=== PATIENT | male | born 1935 | race Asian ===

== ENCOUNTER → 2018-01-07 | Emergency (ER) | payer MEDICARE, MEDICAID ==
[~2018-01-07] VITALS: Ht 154.9 cm; Wt 63.6 kg
[~2018-01-07] MED LIST: ALBU8HFA PO; AZIT250T PO; DOXY100C43 PO; PRED20TA PO; PRED5TAB PO; ZOF4T PO; dexamethasone 4mg tablet PO ONE; ipratropium/albuterol 3ml nebule NEB ONE
[2018-01-07 13:04] LABS: BASOPHILS % (AUTO) 0.4 % (0-1); EOSINOPHILS # (AUTO) 0.3 X10'3 (0-0.9); EOSINOPHILS % (AUTO) 4.8 % (0-6); HEMATOCRIT 36.1 % (42.0-52.0); LYMPHOCYTES # (AUTO) 0.9 X10'3 (1.1-4.8); LYMPHOCYTES % (AUTO) 15.7 % (21-51); MEAN CORPUSCULAR HGB CONC 30.4 % (33.0-36.5); MEAN CORPUSCULAR VOLUME 62.7 FL (78-98); MEAN PLATELET VOLUME 8.3 FL (7.4-10.4); MONOCYTES # (AUTO) 0.8 X10'3 (0-0.9); MONOCYTES % (AUTO) 13.4 % (2-12); NEUTROPHILS # (AUTO) 3.8 X10'3 (1.8-7.7); NEUTROPHILS % (AUTO) 65.7 % (42-75); PLATELET COUNT 186 X10'3 (140-440); RED BLOOD COUNT 5.76 X10'6 (4.70-6.10); RED CELL DISTRIBUTION WIDTH 15.4 % (11.5-14.5); WHITE BLOOD COUNT 5.8 X10'3 (4.5-11.0)
[2018-01-07 13:19] LABS: ALBUMIN 2.8 G/DL (3.4-5.0); ALBUMIN/GLOBULIN RATIO 0.7 (1.1-1.5); ANION GAP 8 (8-16); BILIRUBIN,TOTAL 0.5 MG/DL (0.1-1.0); BLOOD UREA NITROGEN 15 MG/DL (7-18); BUN/CREATININE RATIO 13.8 (5.4-32.0); CALCIUM 8.8 MG/DL (8.5-10.1); CHLORIDE 107 MMOL/L (99-107); CREATININE 1.09 MG/DL (0.60-1.10); GLUCOSE 116 MG/DL (70-104); POTASSIUM 3.9 MMOL/L (3.5-5.1); SODIUM 147 MMOL/L (135-145); TOTAL CARBON DIOXIDE 32.5 MMOL/L (24-32); eGFR 65 ML/MIN
[2018-01-07 13:20] LABS: ALANINE AMINOTRANSFERASE 41 U/L (12-78); ALKALINE PHOSPHATASE 96 IU/L (46-116); ASPARTATE AMINO TRANSFERASE 21 U/L (10-37)
[2018-01-07 14:23] VITALS: BP 116/64
== END | disposition home or self-care (01) ==
LOC: ER 12:27
DX: J44.1 Chronic obstructive pulmonary disease with (acute) exacerbation (principal); J20.9 Acute bronchitis, unspecified; D64.9 Anemia, unspecified; Z90.49 Acquired absence of other specified parts of digestive tract; Z79.899 Other long term (current) drug therapy
CPT/HCPCS: 36415; 71045; 80053; 83605; 85025; 87040; 87070; 87077; 87185; 94640; 94760; 99285; J7030; J8540

== ENCOUNTER 2018-05-29 21:41 | Inpatient (IN) | payer MEDICARE, MEDICAID ==
[~2018-05-29] VITALS: Ht 165.1 cm; Wt 73.8 kg
[~2018-05-29 21:41] MED LIST changes: -DOXY100C43 PO; -dexamethasone 4mg tablet PO ONE; -ipratropium/albuterol 3ml nebule NEB ONE
[2018-05-29 22:38] LABS: BASOPHILS % (AUTO) 0 % (0-1); EOSINOPHILS # (AUTO) 0.4 X10'3 (0-0.9); EOSINOPHILS % (AUTO) 3.4 % (0-6); HEMATOCRIT 38.7 % (42.0-52.0); HEMOGLOBIN 11.6 g/dl (14.0-17.9); LYMPHOCYTES # (AUTO) 0.8 X10'3 (1.1-4.8); LYMPHOCYTES % (AUTO) 6.5 % (21-51); MEAN CORPUSCULAR HEMOGLOBIN 18.4 PG (27.0-31.0); MEAN CORPUSCULAR HGB CONC 30.1 % (33.0-36.5); MEAN CORPUSCULAR VOLUME 61.3 FL (78-98); MEAN PLATELET VOLUME 8.7 FL (7.4-10.4); MONOCYTES # (AUTO) 0.6 X10'3 (0-0.9); MONOCYTES % (AUTO) 4.7 % (2-12); NEUTROPHILS # (AUTO) 11.1 X10'3 (1.8-7.7); NEUTROPHILS % (AUTO) 85.4 % (42-75); PLATELET COUNT 156 X10'3 (140-440); RED BLOOD COUNT 6.31 X10'6 (4.70-6.10); RED CELL DISTRIBUTION WIDTH 16.8 % (11.5-14.5); WHITE BLOOD COUNT 12.9 X10'3 (4.5-11.0)
[2018-05-29] MEDS ORDERED: albuterol 2.5 MG/3 ML nebule CONTNEB PRN (22:45)
[2018-05-29] MEDS ORDERED: methylPREDNISolone sod succ 125mg/2ml vial IV ONE (22:45)
[2018-05-29 22:49] LABS: PARTIAL THROMBOPLASTIN TIME 31 SECONDS (22-32); PROTHROMBIN TIME 10.2 SECONDS (9.0-12.0)
[2018-05-29 22:55] LABS: ALANINE AMINOTRANSFERASE 20 U/L (12-78); ALBUMIN 3.5 G/DL (3.4-5.0); ALBUMIN/GLOBULIN RATIO 0.9 (1.1-1.5); ALKALINE PHOSPHATASE 96 IU/L (46-116); ANION GAP 1 (8-16); ASPARTATE AMINO TRANSFERASE 18 U/L (10-37); BILIRUBIN,TOTAL 0.7 MG/DL (0.1-1.0); BLOOD UREA NITROGEN 28 MG/DL (7-18); BUN/CREATININE RATIO 20.6 (5.4-32.0); CALCIUM 8.7 MG/DL (8.5-10.1); CHLORIDE 107 MMOL/L (99-107); CREATININE 1.36 MG/DL (0.60-1.10); GLUCOSE 104 MG/DL (70-104); POTASSIUM 5.2 MMOL/L (3.5-5.1); SODIUM 142 MMOL/L (135-145); TOTAL CARBON DIOXIDE 33.9 MMOL/L (24-32); TOTAL PROTEIN 7.3 G/DL (6.4-8.2); eGFR 50 ML/MIN
[2018-05-29 23:07] LABS: MAGNESIUM 2.1 MG/DL (1.5-2.4)
[2018-05-29 23:24] LABS: ANISOCYTOSIS 1+; MICROCYTOSIS 2+; PLATELET ESTIMATE NORMAL; TOTAL CELLS COUNTED 100
[2018-05-29 23:25] LABS: HYPOCHROMASIA 1+; POIKILOCYTOSIS FEW
[2018-05-29] MEDS ORDERED: CefTRIAXone/D5W-Rocephin 1gm 50 ML IV ONE (23:25)
[2018-05-29] MEDS ORDERED: azithromycin/NS 500mg/250ml 250 ML IV SCH (23:30)
[2018-05-29] MEDS ORDERED: IPRA4AER IH (23:41)
[2018-05-29 23:45] LABS: CLARITY,URINE CLEAR (Clear); COLOR,URINE YELLOW (Yellow); GLUCOSE, URINE NEGATIVE (Neg); KETONES,URINE NEGATIVE (Neg); LEUKOCYTE ESTERASE ,URINE NEGATIVE (Neg); NITRITES, URINE NEGATIVE (Neg); OCCULT BLOOD,URINE NEGATIVE (Neg); PH,URINE 5.5 (4.8-8.0); PROTEIN,URINE NEGATIVE (Neg); UROBILINOGEN,URINE 0.2 E.U/dL (0.2-1.0)
[2018-05-29 23:46] LABS: UA COLLECTION TYPE NON-SPECIFIED
[2018-05-30 00:26] LABS: ABG BASE EXCESS 4.2 mmol/L (-2.0-3.0); ABG HCO3 33.9 mmol/L (22.0-26.0); ABG OXYGEN SATURATION 92.1 % (95-98); ABG PCO2 (T) 81.4 mmHg (35.0-48.0); ABG PH (T) 7.238 (7.350-7.450); ALLEN'S TEST Positive; FCOHb 1.3 % (0.5-1.5); FLOW 4 L/min; FMetHb 0.1 % (0.3-1.12); FO2Hb 90.8 % (94-100); PATIENT TEMPERATURE 37.1; RESPIRATORY RATE (OBSERVED) 18 b/min; TOTAL HEMOGLOBIN 12.2 G/dl (14.0-18.0)
[2018-05-30] MEDS: normal saline 1000ml 1,000 ML IV SCH (01:42)
[2018-05-30] MEDS ORDERED: ondansetron/PF 4mg/2ml inj IV PRN (01:45)
[2018-05-30] MEDS ORDERED: mag hydrox/Alum hydrox/simeth 30ml oral suspension PO PRN (01:45)
[2018-05-30 02:30] VITALS: BP 105/61
[2018-05-30] MEDS: albuterol 2.5 MG/3 ML nebule NEB SCH ×6 (03:33→23:27)
[2018-05-30 05:20] LABS: ABG BASE EXCESS 2.1 mmol/L (-2.0-3.0); ABG HCO3 30.7 mmol/L (22.0-26.0); ABG OXYGEN SATURATION 92.6 % (95-98); ABG PCO2 (T) 66.4 mmHg (35.0-48.0); ABG PH (T) 7.278 (7.350-7.450); ABG PO2 (T) 64.1 mmHg (83-108); ALLEN'S TEST Positive; FCOHb 0.5 % (0.5-1.5); FMetHb 0.3 % (0.3-1.12); FO2Hb 91.9 % (94-100); MINUTE VOLUME 11 L/min; PATIENT TEMPERATURE 36.1; RESPIRATORY RATE 18 b/min; RESPIRATORY RATE (OBSERVED) 23 b/min; TOTAL HEMOGLOBIN 12.2 G/dl (14.0-18.0)
[2018-05-30 06:00] VITALS: BP 126/66
[2018-05-30] MEDS: CefTRIAXone/D5W-Rocephin 1gm 50 ML IV SCH (07:30)
[2018-05-30] MEDS: methylPREDNISolone sod succ/PF 40mg inj. IV SCH ×2 (07:35→16:11)
[2018-05-30] MEDS: heparin, porcine 5000 units/ml vial SQ SCH ×2 (07:42→20:01)
[2018-05-30 11:00] VITALS: BP 125/71
[2018-05-30] MEDS: acetaminophen 325mg tablet PO PRN ×2 (13:08→20:01)
[2018-05-30 15:00] VITALS: BP 131/71
[2018-05-30 19:00] VITALS: BP 134/62
[2018-05-30] MEDS: lactobacillus rhamnosus 10,000 MMU CELLS/CAPSULE PO SCH (20:00)
[2018-05-30 23:00] VITALS: BP 106/52
[2018-05-31] MEDS: methylPREDNISolone sod succ/PF 40mg inj. IV SCH ×3 (00:57→16:32)
[2018-05-31 03:00] VITALS: BP 117/59
[2018-05-31] MEDS: albuterol 2.5 MG/3 ML nebule NEB SCH ×6 (03:34→23:03)
[2018-05-31 06:23] LABS: BASOPHILS % (AUTO) 0 % (0-1); EOSINOPHILS # (AUTO) 0.1 X10'3 (0-0.9); EOSINOPHILS % (AUTO) 1.1 % (0-6); HEMATOCRIT 37.6 % (42.0-52.0); HEMOGLOBIN 11.2 g/dl (14.0-17.9); LYMPHOCYTES # (AUTO) 0.5 X10'3 (1.1-4.8); MEAN CORPUSCULAR HEMOGLOBIN 18.3 PG (27.0-31.0); MEAN CORPUSCULAR HGB CONC 29.9 % (33.0-36.5); MEAN CORPUSCULAR VOLUME 61.3 FL (78-98); MEAN PLATELET VOLUME 8.9 FL (7.4-10.4); MONOCYTES # (AUTO) 0.4 X10'3 (0-0.9); MONOCYTES % (AUTO) 4.3 % (2-12); NEUTROPHILS # (AUTO) 8.8 X10'3 (1.8-7.7); NEUTROPHILS % (AUTO) 89.6 % (42-75); PLATELET COUNT 161 X10'3 (140-440); RED BLOOD COUNT 6.14 X10'6 (4.70-6.10); RED CELL DISTRIBUTION WIDTH 16.7 % (11.5-14.5); WHITE BLOOD COUNT 9.8 X10'3 (4.5-11.0)
[2018-05-31 07:00] VITALS: BP 117/56
[2018-05-31 07:04] LABS: ALANINE AMINOTRANSFERASE 60 U/L (12-78); ALBUMIN 3.2 G/DL (3.4-5.0); ALBUMIN/GLOBULIN RATIO 0.9 (1.1-1.5); ALKALINE PHOSPHATASE 92 IU/L (46-116); ANION GAP 5 (8-16); ASPARTATE AMINO TRANSFERASE 32 U/L (10-37); BILIRUBIN,TOTAL 0.5 MG/DL (0.1-1.0); BLOOD UREA NITROGEN 34 MG/DL (7-18); BUN/CREATININE RATIO 28.8 (5.4-32.0); CALCIUM 9.1 MG/DL (8.5-10.1); CHLORIDE 106 MMOL/L (99-107); CREATININE 1.18 MG/DL (0.60-1.10); GLUCOSE 123 MG/DL (70-104); SODIUM 143 MMOL/L (135-145); TOTAL CARBON DIOXIDE 32.3 MMOL/L (24-32); TOTAL PROTEIN 6.9 G/DL (6.4-8.2); eGFR 59 ML/MIN
[2018-05-31] MEDS: normal saline 1000ml 1,000 ML IV SCH (07:32)
[2018-05-31] MEDS: CefTRIAXone/D5W-Rocephin 1gm 50 ML IV SCH (07:34)
[2018-05-31] MEDS: azithromycin 250mg tablet PO SCH (07:37)
[2018-05-31] MEDS: lactobacillus rhamnosus 10,000 MMU CELLS/CAPSULE PO SCH ×2 (07:38→20:11)
[2018-05-31] MEDS: heparin, porcine 5000 units/ml vial SQ SCH ×2 (07:38→20:13)
[2018-05-31 09:45] LABS: HYPOCHROMASIA 1+; PLATELET ESTIMATE NORMAL
[2018-05-31 09:46] LABS: ANISOCYTOSIS 1+; ELLIPTOCYTES 1+; MICROCYTOSIS 2+
[2018-05-31 11:00] VITALS: BP 123/87
[2018-05-31] MEDS: morphine 2 MG/ML inj. syringe IV PRN ×2 (12:47→16:32)
[2018-05-31 15:00] VITALS: BP 138/85
[2018-05-31 19:00] VITALS: BP 153/81
[2018-05-31] MEDS ORDERED: allopurinol 100mg tablet PO ONE (19:15)
[2018-05-31] MEDS: guaiFENesin ER 600mg tablet PO SCH (20:12)
[2018-05-31 23:00] VITALS: BP 141/73
[2018-06-01] MEDS: methylPREDNISolone sod succ/PF 40mg inj. IV SCH ×3 (00:53→16:41)
[2018-06-01 03:00] VITALS: BP 133/57
[2018-06-01] MEDS: albuterol 2.5 MG/3 ML nebule NEB SCH ×3 (03:08→10:44)
[2018-06-01 06:31] LABS: BASOPHILS % (AUTO) 0 % (0-1); EOSINOPHILS # (AUTO) 0.1 X10'3 (0-0.9); EOSINOPHILS % (AUTO) 1.2 % (0-6); HEMATOCRIT 36.3 % (42.0-52.0); HEMOGLOBIN 10.8 g/dl (14.0-17.9); LYMPHOCYTES # (AUTO) 0.3 X10'3 (1.1-4.8); MEAN CORPUSCULAR HEMOGLOBIN 18.2 PG (27.0-31.0); MEAN CORPUSCULAR HGB CONC 29.9 % (33.0-36.5); MONOCYTES # (AUTO) 0.4 X10'3 (0-0.9); MONOCYTES % (AUTO) 4.1 % (2-12); NEUTROPHILS # (AUTO) 9.2 X10'3 (1.8-7.7); NEUTROPHILS % (AUTO) 91.7 % (42-75); PLATELET COUNT 174 X10'3 (140-440); RED BLOOD COUNT 5.96 X10'6 (4.70-6.10); RED CELL DISTRIBUTION WIDTH 16.4 % (11.5-14.5); WHITE BLOOD COUNT 10.1 X10'3 (4.5-11.0)
[2018-06-01 06:55] VITALS: BP 129/72
[2018-06-01 06:55] LABS: ALANINE AMINOTRANSFERASE 42 U/L (12-78); ALBUMIN/GLOBULIN RATIO 0.9 (1.1-1.5); ALKALINE PHOSPHATASE 80 IU/L (46-116); ANION GAP 5 (8-16); ASPARTATE AMINO TRANSFERASE 16 U/L (10-37); BILIRUBIN,TOTAL 0.3 MG/DL (0.1-1.0); BLOOD UREA NITROGEN 35 MG/DL (7-18); BUN/CREATININE RATIO 29.2 (5.4-32.0); CALCIUM 8.8 MG/DL (8.5-10.1); CHLORIDE 109 MMOL/L (99-107); GLUCOSE 160 MG/DL (70-104); POTASSIUM 4.3 MMOL/L (3.5-5.1); SODIUM 145 MMOL/L (135-145); TOTAL CARBON DIOXIDE 30.6 MMOL/L (24-32); TOTAL PROTEIN 6.4 G/DL (6.4-8.2); eGFR 58 ML/MIN
[2018-06-01] MEDS: azithromycin 250mg tablet PO SCH (07:26)
[2018-06-01] MEDS: CefTRIAXone/D5W-Rocephin 1gm 50 ML IV SCH (07:26)
[2018-06-01] MEDS: lactobacillus rhamnosus 10,000 MMU CELLS/CAPSULE PO SCH ×2 (07:26→20:14)
[2018-06-01] MEDS: guaiFENesin ER 600mg tablet PO SCH ×2 (07:26→20:14)
[2018-06-01] MEDS: heparin, porcine 5000 units/ml vial SQ SCH ×2 (07:27→20:15)
[2018-06-01] MEDS: allopurinol 100mg tablet PO SCH (07:30)
[2018-06-01 08:52] LABS: ANISOCYTOSIS 1+; MICROCYTOSIS 2+; PLATELET ESTIMATE NORMAL
[2018-06-01 08:53] LABS: HYPOGRANULAR PLATELETS FEW; POIKILOCYTOSIS FEW; POLYCHROMASIA FEW; TARGET CELLS FEW
[2018-06-01 11:21] VITALS: BP 138/74
[2018-06-01] MEDS ORDERED: albuterol 2.5 MG/3 ML nebule ONE (13:51)
[2018-06-01 15:00] VITALS: BP 149/73
[2018-06-01] MEDS: ipratropium/albuterol 3ml nebule NEB SCH ×3 (15:09→23:10)
[2018-06-01 19:00] VITALS: BP 135/76
[2018-06-01] MEDS: temazepam 15mg capsule PO PRN (20:14)
[2018-06-01 23:00] VITALS: BP 135/65
[2018-06-02] MEDS: methylPREDNISolone sod succ/PF 40mg inj. IV SCH ×4 (00:46→23:01)
[2018-06-02 03:00] VITALS: BP 130/64
[2018-06-02] MEDS: ipratropium/albuterol 3ml nebule NEB SCH ×6 (03:21→22:46)
[2018-06-02 05:55] LABS: BASOPHILS % (AUTO) 0 % (0-1); EOSINOPHILS # (AUTO) 0.1 X10'3 (0-0.9); HEMATOCRIT 36.7 % (42.0-52.0); HEMOGLOBIN 11.1 g/dl (14.0-17.9); LYMPHOCYTES # (AUTO) 0.6 X10'3 (1.1-4.8); LYMPHOCYTES % (AUTO) 5.7 % (21-51); MEAN CORPUSCULAR HEMOGLOBIN 18.5 PG (27.0-31.0); MEAN CORPUSCULAR HGB CONC 30.3 % (33.0-36.5); MEAN CORPUSCULAR VOLUME 60.9 FL (78-98); MEAN PLATELET VOLUME 8.5 FL (7.4-10.4); MONOCYTES # (AUTO) 0.6 X10'3 (0-0.9); MONOCYTES % (AUTO) 6.1 % (2-12); NEUTROPHILS # (AUTO) 8.9 X10'3 (1.8-7.7); NEUTROPHILS % (AUTO) 87.2 % (42-75); PLATELET COUNT 184 X10'3 (140-440); RED BLOOD COUNT 6.03 X10'6 (4.70-6.10); RED CELL DISTRIBUTION WIDTH 16.6 % (11.5-14.5); WHITE BLOOD COUNT 10.1 X10'3 (4.5-11.0)
[2018-06-02 06:00] VITALS: BP 152/78
[2018-06-02 06:21] LABS: ALANINE AMINOTRANSFERASE 41 U/L (12-78); ALBUMIN 2.9 G/DL (3.4-5.0); ALBUMIN/GLOBULIN RATIO 0.9 (1.1-1.5); ALKALINE PHOSPHATASE 67 IU/L (46-116); ANION GAP 3 (8-16); ASPARTATE AMINO TRANSFERASE 16 U/L (10-37); BILIRUBIN,TOTAL 0.5 MG/DL (0.1-1.0); BLOOD UREA NITROGEN 32 MG/DL (7-18); BUN/CREATININE RATIO 29.9 (5.4-32.0); CALCIUM 8.9 MG/DL (8.5-10.1); CHLORIDE 110 MMOL/L (99-107); CREATININE 1.07 MG/DL (0.60-1.10); GLUCOSE 126 MG/DL (70-104); POTASSIUM 4.4 MMOL/L (3.5-5.1); SODIUM 145 MMOL/L (135-145); TOTAL CARBON DIOXIDE 32.5 MMOL/L (24-32); TOTAL PROTEIN 6.2 G/DL (6.4-8.2); eGFR 66 ML/MIN
[2018-06-02] MEDS: guaiFENesin ER 600mg tablet PO SCH ×2 (08:10→19:34)
[2018-06-02] MEDS: allopurinol 100mg tablet PO SCH (08:10)
[2018-06-02] MEDS: heparin, porcine 5000 units/ml vial SQ SCH ×2 (08:10→19:35)
[2018-06-02] MEDS: lactobacillus rhamnosus 10,000 MMU CELLS/CAPSULE PO SCH ×2 (08:10→19:34)
[2018-06-02] MEDS: azithromycin 250mg tablet PO SCH (08:10)
[2018-06-02] MEDS: CefTRIAXone/D5W-Rocephin 1gm 50 ML IV SCH (08:10)
[2018-06-02 11:00] VITALS: BP 139/74
[2018-06-02 15:00] VITALS: BP 140/72
[2018-06-02 19:00] VITALS: BP 144/84
[2018-06-02] MEDS: cefepime 2g/NS 100ml ADVANTAGE 100 ML IV SCH (19:34)
[2018-06-02] MEDS ORDERED: diltiazem 30mg tablet PO PRN (19:45)
[2018-06-02] MEDS ORDERED: diltiazem 5mg/ml 5ml inj. IV ONE (19:45)
[2018-06-02 23:00] VITALS: BP 160/95
[2018-06-02] MEDS: temazepam 15mg capsule PO PRN (23:00)
[2018-06-03] VITALS (7 sets, daily range): BP systolic 125–165; BP diastolic 57–93
[2018-06-03] MEDS: normal saline 1000ml 1,000 ML IV SCH (01:42)
[2018-06-03] MEDS: ipratropium/albuterol 3ml nebule NEB SCH ×6 (03:25→23:23)
[2018-06-03 05:56] LABS: ALANINE AMINOTRANSFERASE 37 U/L (12-78); ALBUMIN 2.9 G/DL (3.4-5.0); ALBUMIN/GLOBULIN RATIO 0.9 (1.1-1.5); ALKALINE PHOSPHATASE 75 IU/L (46-116); ANION GAP 5 (8-16); ASPARTATE AMINO TRANSFERASE 14 U/L (10-37); BILIRUBIN,TOTAL 0.4 MG/DL (0.1-1.0); BLOOD UREA NITROGEN 31 MG/DL (7-18); BUN/CREATININE RATIO 27.4 (5.4-32.0); CALCIUM 8.7 MG/DL (8.5-10.1); CHLORIDE 108 MMOL/L (99-107); CREATININE 1.13 MG/DL (0.60-1.10); GLUCOSE 187 MG/DL (70-104); POTASSIUM 4.2 MMOL/L (3.5-5.1); SODIUM 143 MMOL/L (135-145); TOTAL CARBON DIOXIDE 29.8 MMOL/L (24-32); TOTAL PROTEIN 6.1 G/DL (6.4-8.2); eGFR 62 ML/MIN
[2018-06-03 06:02] LABS: BASOPHILS % (AUTO) 0 % (0-1); EOSINOPHILS # (AUTO) 0.1 X10'3 (0-0.9); EOSINOPHILS % (AUTO) 0.9 % (0-6); HEMATOCRIT 36.9 % (42.0-52.0); HEMOGLOBIN 11.1 g/dl (14.0-17.9); LYMPHOCYTES # (AUTO) 0.5 X10'3 (1.1-4.8); LYMPHOCYTES % (AUTO) 6.4 % (21-51); MEAN CORPUSCULAR HEMOGLOBIN 18.5 PG (27.0-31.0); MEAN CORPUSCULAR HGB CONC 30.1 % (33.0-36.5); MEAN CORPUSCULAR VOLUME 61.5 FL (78-98); MEAN PLATELET VOLUME 8.8 FL (7.4-10.4); MONOCYTES # (AUTO) 0.3 X10'3 (0-0.9); MONOCYTES % (AUTO) 4.3 % (2-12); NEUTROPHILS # (AUTO) 7.1 X10'3 (1.8-7.7); NEUTROPHILS % (AUTO) 88.4 % (42-75); PLATELET COUNT 186 X10'3 (140-440); RED BLOOD COUNT 6.01 X10'6 (4.70-6.10); RED CELL DISTRIBUTION WIDTH 17.2 % (11.5-14.5)
[2018-06-03 07:28] LABS: ELLIPTOCYTES 1+; PLATELET ESTIMATE NORMAL
[2018-06-03 07:29] LABS: ANISOCYTOSIS 1+; HYPOCHROMASIA 2+; MICROCYTOSIS 2+; POIKILOCYTOSIS FEW
[2018-06-03 07:30] LABS: TARGET CELLS FEW
[2018-06-03] MEDS: allopurinol 100mg tablet PO SCH (08:17)
[2018-06-03] MEDS: cefepime 2g/NS 100ml ADVANTAGE 100 ML IV SCH ×2 (08:17→19:10)
[2018-06-03] MEDS: methylPREDNISolone sod succ/PF 40mg inj. IV SCH ×3 (08:17→23:10)
[2018-06-03] MEDS: guaiFENesin ER 600mg tablet PO SCH ×2 (08:17→19:10)
[2018-06-03] MEDS: lactobacillus rhamnosus 10,000 MMU CELLS/CAPSULE PO SCH ×2 (08:17→19:10)
[2018-06-03] MEDS: heparin, porcine 5000 units/ml vial SQ SCH ×2 (08:18→19:11)
[2018-06-03] MEDS: magnesium hydroxide 30ml (MOM) UD suspension PO PRN (19:19)
[2018-06-04] MEDS: acetaminophen 325mg tablet PO PRN (00:31)
[2018-06-04] MEDS: ipratropium/albuterol 3ml nebule NEB SCH ×6 (02:56→23:53)
[2018-06-04 02:58] VITALS: BP 161/82
[2018-06-04 03:05] VITALS: BP 150/76
[2018-06-04 05:29] LABS: BASOPHILS % (AUTO) 0 % (0-1); EOSINOPHILS # (AUTO) 0.1 X10'3 (0-0.9); EOSINOPHILS % (AUTO) 0.6 % (0-6); HEMATOCRIT 36.9 % (42.0-52.0); HEMOGLOBIN 11.3 g/dl (14.0-17.9); LYMPHOCYTES # (AUTO) 0.4 X10'3 (1.1-4.8); LYMPHOCYTES % (AUTO) 5.2 % (21-51); MEAN CORPUSCULAR HEMOGLOBIN 18.5 PG (27.0-31.0); MEAN CORPUSCULAR HGB CONC 30.5 % (33.0-36.5); MEAN CORPUSCULAR VOLUME 60.5 FL (78-98); MEAN PLATELET VOLUME 8.7 FL (7.4-10.4); MONOCYTES # (AUTO) 0.4 X10'3 (0-0.9); MONOCYTES % (AUTO) 5.2 % (2-12); NEUTROPHILS # (AUTO) 7.7 X10'3 (1.8-7.7); PLATELET COUNT 188 X10'3 (140-440); RED CELL DISTRIBUTION WIDTH 16.8 % (11.5-14.5); WHITE BLOOD COUNT 8.6 X10'3 (4.5-11.0)
[2018-06-04 05:39] LABS: ALANINE AMINOTRANSFERASE 34 U/L (12-78); ALBUMIN 2.8 G/DL (3.4-5.0); ALBUMIN/GLOBULIN RATIO 0.9 (1.1-1.5); ALKALINE PHOSPHATASE 69 IU/L (46-116); ANION GAP 8 (8-16); ASPARTATE AMINO TRANSFERASE 14 U/L (10-37); BILIRUBIN,TOTAL 0.7 MG/DL (0.1-1.0); BLOOD UREA NITROGEN 34 MG/DL (7-18); BUN/CREATININE RATIO 25.6 (5.4-32.0); CALCIUM 8.6 MG/DL (8.5-10.1); CHLORIDE 106 MMOL/L (99-107); CREATININE 1.33 MG/DL (0.60-1.10); GLUCOSE 186 MG/DL (70-104); SODIUM 143 MMOL/L (135-145); TOTAL CARBON DIOXIDE 29.3 MMOL/L (24-32); TOTAL PROTEIN 5.9 G/DL (6.4-8.2); eGFR 51 ML/MIN
[2018-06-04 06:00] VITALS: BP 123/69
[2018-06-04 06:48] LABS: ANISOCYTOSIS 1+; LARGE PLATELETS FEW; MICROCYTOSIS 2+; PLATELET ESTIMATE NORMAL
[2018-06-04 06:49] LABS: ELLIPTOCYTES 1+; HYPOCHROMASIA 2+
[2018-06-04] MEDS: cefepime 2g/NS 100ml ADVANTAGE 100 ML IV SCH ×2 (08:09→19:49)
[2018-06-04] MEDS: methylPREDNISolone sod succ/PF 40mg inj. IV SCH ×2 (08:09→16:21)
[2018-06-04] MEDS: lactobacillus rhamnosus 10,000 MMU CELLS/CAPSULE PO SCH ×2 (08:09→19:49)
[2018-06-04] MEDS: allopurinol 100mg tablet PO SCH (08:09)
[2018-06-04] MEDS: guaiFENesin ER 600mg tablet PO SCH ×2 (08:09→19:49)
[2018-06-04] MEDS: heparin, porcine 5000 units/ml vial SQ SCH ×2 (08:10→19:49)
[2018-06-04 15:00] VITALS: BP 165/80
[2018-06-04] MEDS ORDERED: LORazepam 0.5 MG tablet PO PRN (16:10)
[2018-06-04 19:00] VITALS: BP 125/83
[2018-06-04] MEDS: magnesium hydroxide 30ml (MOM) UD suspension PO PRN (19:49)
[2018-06-04] MEDS: temazepam 15mg capsule PO PRN (20:05)
[2018-06-04 23:00] VITALS: BP 145/72
[2018-06-05] MEDS: methylPREDNISolone sod succ/PF 40mg inj. IV SCH ×2 (00:42→07:44)
[2018-06-05 02:55] VITALS: BP 158/66
[2018-06-05] MEDS: ipratropium/albuterol 3ml nebule NEB SCH ×4 (03:42→14:02)
[2018-06-05 06:53] VITALS: BP 140/68
[2018-06-05] MEDS: guaiFENesin ER 600mg tablet PO SCH (07:44)
[2018-06-05] MEDS: cefepime 2g/NS 100ml ADVANTAGE 100 ML IV SCH (07:44)
[2018-06-05] MEDS: lactobacillus rhamnosus 10,000 MMU CELLS/CAPSULE PO SCH (07:44)
[2018-06-05] MEDS: heparin, porcine 5000 units/ml vial SQ SCH (07:45)
[2018-06-05] MEDS: allopurinol 100mg tablet PO SCH (07:45)
[2018-06-05 09:36] LABS: ABG BASE EXCESS -0.8 mmol/L (-2.0-3.0); ABG OXYGEN SATURATION 93.4 % (95-98); ABG PCO2 (T) 35.5 mmHg (35.0-48.0); ABG PO2 (T) 73.4 mmHg (83-108); ALLEN'S TEST Positive; FCOHb 0.2 % (0.5-1.5); FLOW 2 L/min; FMetHb 0.2 % (0.3-1.12); RESPIRATORY RATE (OBSERVED) 16 b/min; TOTAL HEMOGLOBIN 12.6 G/dl (14.0-18.0)
[2018-06-05 11:00] VITALS: BP 158/89
[2018-06-05] MEDS ORDERED: LEVO750T21 PO (13:30)
[2018-06-05] MEDS ORDERED: FAMO-128 PO (13:30)
[2018-06-05] MEDS ORDERED: IPRA3AMP31 IH (13:30)
[2018-06-05] MEDS ORDERED: PRED10TA23 PO (13:30)
[2018-06-05] MEDS ORDERED: DILT180C95 PO (13:38)
== END 2018-06-05 16:17 | disposition home or self-care (01) | DRG 682 ==
LOC: ER 21:42 → ED HOLD 05-30 01:42 → PCU 3S 05-30 02:14
PROVIDERS: ADMIT Internal Medicine; ATTEND Internal Medicine
PROC: 5A09357 Assistance with Respiratory Ventilation, Less than 24 Consecutive Hours, Continuous Positive Airway Pressure (ICD-10-PCS; principal; 2018-05-30)
PROC: 5A09357 Assistance with Respiratory Ventilation, Less than 24 Consecutive Hours, Continuous Positive Airway Pressure (ICD-10-PCS; 2018-05-31)
PROC: 5A09357 Assistance with Respiratory Ventilation, Less than 24 Consecutive Hours, Continuous Positive Airway Pressure (ICD-10-PCS; 2018-06-05)
DX: N17.9 Acute kidney failure, unspecified (principal); J18.1 Lobar pneumonia, unspecified organism; J96.21 Acute and chronic respiratory failure with hypoxia; J96.22 Acute and chronic respiratory failure with hypercapnia; J44.0 Chronic obstructive pulmonary disease with (acute) lower respiratory infection; J44.1 Chronic obstructive pulmonary disease with (acute) exacerbation; E87.2 Acidosis; F41.9 Anxiety disorder, unspecified; M10.9 Gout, unspecified; I10 Essential (primary) hypertension; Z90.49 Acquired absence of other specified parts of digestive tract; Z79.899 Other long term (current) drug therapy; Z87.891 Personal history of nicotine dependence
CPT/HCPCS: 36415; 36600; 71045; 71046; 80053; 81003; 82803; 83605; 83735; 83880; 84484; 85018; 85025; 85610; 85730; 87040; 87070; 93005; 94640; 94660; 94760; 96365; 96366; 96368; 96375; 97110; 97116; 97162; 97530; 99291; J0456; J0692; J0696; J1644; J2270; J2920; J2930; J3490; J7030

== ENCOUNTER 2018-07-27 20:09 | Inpatient (IN) | payer MEDICARE, MEDICAID ==
[~2018-07-27] VITALS: Ht 165.1 cm; Wt 66.8 kg
[2018-07-27 12:00] VITALS: BP 118/75
[~2018-07-27 20:09] MED LIST changes: -ALBU8HFA PO; -AZIT250T PO; +DILT180C95 PO; +FAMO-128 PO; +IPRA3AMP31 IH; +IPRA4AER IH; -PRED20TA PO; -PRED5TAB PO; -ZOF4T PO
[2018-07-27] MEDS ORDERED: ipratropium/albuterol 3ml nebule NEB ONE (20:25)
[2018-07-27 20:50] LABS: BASOPHILS % (AUTO) 0.2 % (0-1); EOSINOPHILS # (AUTO) 0.3 X10'3 (0-0.9); EOSINOPHILS % (AUTO) 2.3 % (0-6); HEMATOCRIT 39.2 % (42.0-52.0); HEMOGLOBIN 11.4 g/dl (14.0-17.9); LYMPHOCYTES # (AUTO) 0.9 X10'3 (1.1-4.8); LYMPHOCYTES % (AUTO) 8.1 % (21-51); MEAN CORPUSCULAR HEMOGLOBIN 18.4 PG (27.0-31.0); MEAN CORPUSCULAR HGB CONC 29.1 % (33.0-36.5); MEAN CORPUSCULAR VOLUME 63.1 FL (78-98); MEAN PLATELET VOLUME 8.8 FL (7.4-10.4); MONOCYTES # (AUTO) 0.7 X10'3 (0-0.9); MONOCYTES % (AUTO) 5.9 % (2-12); NEUTROPHILS # (AUTO) 9.8 X10'3 (1.8-7.7); NEUTROPHILS % (AUTO) 83.5 % (42-75); PLATELET COUNT 178 X10'3 (140-440); RED BLOOD COUNT 6.21 X10'6 (4.70-6.10); RED CELL DISTRIBUTION WIDTH 17.6 % (11.5-14.5); WHITE BLOOD COUNT 11.7 X10'3 (4.5-11.0)
[2018-07-27] MEDS ORDERED: acetaminophen 325mg tablet PO ONE (21:00)
[2018-07-27 21:05] LABS: ABG BASE EXCESS 7.1 mmol/L (-2.0-3.0); ABG HCO3 35.8 mmol/L (22.0-26.0); ABG PCO2 (T) 77.1 mmHg (35.0-48.0); ALLEN'S TEST Positive; FCOHb 1.4 % (0.5-1.5); FLOW 2 L/min; FMetHb 0.3 % (0.3-1.12); FO2Hb 88.5 % (94-100); TOTAL HEMOGLOBIN 12.4 G/dl (14.0-18.0)
[2018-07-27] MEDS ORDERED: CefTRIAXone 2gm/D5W 50ml 50 ML IV ONE (21:05)
[2018-07-27] MEDS ORDERED: azithromycin 250mg tablet PO ONE (21:05)
[2018-07-27 21:06] LABS: ALANINE AMINOTRANSFERASE 34 U/L (12-78); ALBUMIN 3.8 G/DL (3.4-5.0); ALBUMIN/GLOBULIN RATIO 1.1 (1.1-1.5); ALKALINE PHOSPHATASE 93 IU/L (46-116); ANION GAP 6 (8-16); ASPARTATE AMINO TRANSFERASE 33 U/L (10-37); BILIRUBIN,TOTAL 1.9 MG/DL (0.1-1.0); BLOOD UREA NITROGEN 25 MG/DL (7-18); BUN/CREATININE RATIO 22.5 (5.4-32.0); CALCIUM 8.7 MG/DL (8.5-10.1); CHLORIDE 107 MMOL/L (99-107); CREATININE 1.11 MG/DL (0.60-1.10); GLUCOSE 145 MG/DL (70-104); POTASSIUM 4.5 MMOL/L (3.5-5.1); SODIUM 146 MMOL/L (135-145); TOTAL CARBON DIOXIDE 33.4 MMOL/L (24-32); TOTAL PROTEIN 7.2 G/DL (6.4-8.2); eGFR 63 ML/MIN
[2018-07-27] MEDS ORDERED: dexamethasone sod phosphate 10mg/ml inj IV STA (21:06)
[2018-07-27 21:09] LABS: PARTIAL THROMBOPLASTIN TIME 33 SECONDS (22-32); PROTHROMBIN TIME 10.4 SECONDS (9.0-12.0)
[2018-07-27 21:22] LABS: ANISOCYTOSIS 2+; ELLIPTOCYTES 1+; MICROCYTOSIS 2+; PLATELET ESTIMATE NORMAL; POLYCHROMASIA FEW; TEAR DROP CELLS FEW
[2018-07-27] MEDS ORDERED: aspirin 81mg tab.chew PO ONE (21:35)
[2018-07-27] MEDS ORDERED: heparin 10,000 units/1 ML INJ IV ONE ×2 (21:35→21:40)
[2018-07-27] MEDS ORDERED: heparin 10,000 units/1 ML INJ IV PRN (21:35)
[2018-07-27] MEDS: nitroGLYCERIN 0.4mg SUBLingual tab SL PRN ×2 (21:51→21:59)
[2018-07-27] MEDS ORDERED: iohexol 350MG/ML 100ml bottle IV ONE (21:52)
[2018-07-27] MEDS: heparin 25,000 UNIT/250ml bag 250 ML IV SCH (21:59)
[2018-07-27] MEDS ORDERED: ALLO100T PO (22:26)
[2018-07-27] MEDS ORDERED: METH5TAB PO (22:26)
[2018-07-27] MEDS ORDERED: dextrose 5%-1/2 normal saline 1,000 ML IV SCH (22:29)
[2018-07-27] MEDS ORDERED: metoclopramide 5 mg/ml inj IV PRN (22:30)
[2018-07-27] MEDS ORDERED: morphine 2 MG/ML inj. syringe IV PRN ×2 (22:30)
[2018-07-27] MEDS ORDERED: acetaminophen 650mg rectal suppository RC PRN (22:30)
[2018-07-27] MEDS ORDERED: diphenhydrAMINE 25mg capsule PO PRN (22:30)
[2018-07-27] MEDS ORDERED: ondansetron/PF 4mg/2ml inj IV PRN (22:30)
[2018-07-27] MEDS ORDERED: diphenhydrAMINE 50 mg/ml inj IV PRN (22:30)
[2018-07-27] MEDS ORDERED: acetaminophen 325mg tablet PO PRN ×2 (22:30)
[2018-07-27] MEDS ORDERED: magnesium hydroxide 30ml (MOM) UD suspension PO PRN (22:30)
[2018-07-27] MEDS ORDERED: bisacodyl 10mg suppository rectal RC PRN (22:30)
[2018-07-27] MEDS ORDERED: HYDROmorphone 1 mg/ml syringe IV PRN ×2 (22:30)
[2018-07-27] MEDS ORDERED: mag hydrox/Alum hydrox/simeth 30ml oral suspension PO PRN (22:30)
[2018-07-27 23:08] LABS: LIPASE 121 U/L (73-393)
[2018-07-27 23:11] LABS: ABG OXYGEN SATURATION 95.1 % (95-98); ABG PCO2 (T) 74.7 mmHg (35.0-48.0); ABG PH (T) 7.275 (7.350-7.450); ALLEN'S TEST Positive; FCOHb 1.4 % (0.5-1.5); FMetHb 0.2 % (0.3-1.12); FO2Hb 93.6 % (94-100); PATIENT TEMPERATURE 36.9; RESPIRATORY RATE 12 b/min; TOTAL HEMOGLOBIN 12.2 G/dl (14.0-18.0)
[2018-07-27] MEDS ORDERED: ipratropium/albuterol 3ml nebule NEB PRN (23:40)
[2018-07-28] VITALS (7 sets, daily range): BP systolic 118–164; BP diastolic 53–83
[2018-07-28 00:37] LABS: HEMOGLOBIN A1C 5.8 % (4.5-6.2)
[2018-07-28 00:44] LABS: MAGNESIUM 1.9 MG/DL (1.5-2.4); PHOSPHORUS 2.3 MG/DL (2.3-4.5)
[2018-07-28 02:58] LABS: ALANINE AMINOTRANSFERASE 32 U/L (12-78); ALBUMIN 3.6 G/DL (3.4-5.0); ALKALINE PHOSPHATASE 99 IU/L (46-116); ANION GAP 6 (8-16); ASPARTATE AMINO TRANSFERASE 26 U/L (10-37); BLOOD UREA NITROGEN 25 MG/DL (7-18); BUN/CREATININE RATIO 20.3 (5.4-32.0); CALCIUM 8.4 MG/DL (8.5-10.1); CHLORIDE 105 MMOL/L (99-107); CREATININE 1.23 MG/DL (0.60-1.10); GLUCOSE 192 MG/DL (70-104); POTASSIUM 5.3 MMOL/L (3.5-5.1); SODIUM 144 MMOL/L (135-145); TOTAL CARBON DIOXIDE 33.1 MMOL/L (24-32); TOTAL PROTEIN 7.3 G/DL (6.4-8.2); eGFR 56 ML/MIN
[2018-07-28 03:00] LABS: CHOL/HDL RATIO 3.2 (0.00-4.99); CHOLESTEROL 129 MG/DL (0-200); HDL CHOLESTEROL 40 MG/DL (35-60); LDL CHOLESTEROL 85 MG/DL (50-100); TRIGLYCERIDES 33 MG/DL (20-135)
[2018-07-28 04:37] LABS: BASOPHILS % (AUTO) 0 % (0-1); EOSINOPHILS % (AUTO) 0 % (0-6); HEMATOCRIT 32.5 % (42.0-52.0); HEMOGLOBIN 9.2 g/dl (14.0-17.9); LYMPHOCYTES # (AUTO) 0.4 X10'3 (1.1-4.8); LYMPHOCYTES % (AUTO) 6.6 % (21-51); MEAN CORPUSCULAR HEMOGLOBIN 18.2 PG (27.0-31.0); MEAN CORPUSCULAR HGB CONC 28.3 % (33.0-36.5); MEAN CORPUSCULAR VOLUME 64.2 FL (78-98); MEAN PLATELET VOLUME 8.9 FL (7.4-10.4); MONOCYTES % (AUTO) 0.5 % (2-12); NEUTROPHILS # (AUTO) 6.2 X10'3 (1.8-7.7); NEUTROPHILS % (AUTO) 92.9 % (42-75); PLATELET COUNT 126 X10'3 (140-440); RED BLOOD COUNT 5.07 X10'6 (4.70-6.10); RED CELL DISTRIBUTION WIDTH 17.9 % (11.5-14.5); WHITE BLOOD COUNT 6.7 X10'3 (4.5-11.0)
[2018-07-28] MEDS ORDERED: dextrose 50%-water 50ml dispensing syringe IV ONE (04:55)
[2018-07-28] MEDS ORDERED: sodium polystyrene sulfonate 15gm/60ml oral suspension PO ONE (04:55)
[2018-07-28] MEDS ORDERED: albuterol 2.5 MG/3 ML nebule NEB ONE (04:55)
[2018-07-28] MEDS ORDERED: insulin regular, human 10 units/0.1 ml syringe IV ONE (04:55)
[2018-07-28] MEDS: heparin 25,000 UNIT/250ml bag 250 ML IV SCH (05:22)
[2018-07-28] MEDS: docusate sod 100mg capsule PO SCH ×2 (07:40→19:38)
[2018-07-28] MEDS: diltiazem CD 180mg cap (once-daily) PO SCH (07:40)
[2018-07-28] MEDS: famotidine 20mg tablet PO SCH ×2 (07:41→19:38)
[2018-07-28] MEDS ORDERED: azithromycin 250mg tablet PO SCH ×2 (08:00→21:00)
[2018-07-28] MEDS ORDERED: methylPREDNISolone sod succ 125mg/2ml vial IV SCH (08:00)
[2018-07-28] MEDS ORDERED: heparin, porcine 5000 units/ml vial SQ SCH (08:00)
[2018-07-28] MEDS ORDERED: CefTRIAXone/D5W-Rocephin 1gm 50 ML IV SCH (08:00)
[2018-07-28] MEDS: aspirin 81mg tab.chew PO SCH (09:01)
[2018-07-28 09:03] LABS: POTASSIUM 4.3 MMOL/L (3.5-5.1)
[2018-07-28] MEDS: CefTRIAXone/D5W-Rocephin 1gm 50 ML IV SCH ×2 (10:00→22:59)
[2018-07-28] MEDS: ipratropium/albuterol 3ml nebule NEB SCH ×4 (11:45→23:04)
[2018-07-28 12:25] LABS: ABG BASE EXCESS 3.3 mmol/L (-2.0-3.0); ABG HCO3 30.4 mmol/L (22.0-26.0); ABG OXYGEN SATURATION 94.7 % (95-98); ABG PH (T) 7.337 (7.350-7.450); ABG PO2 (T) 74.1 mmHg (83-108); ALLEN'S TEST Positive; FCOHb 0.8 % (0.5-1.5); FLOW 2 L/min; FMetHb 0.3 % (0.3-1.12); FO2Hb 93.7 % (94-100); TOTAL HEMOGLOBIN 12.4 G/dl (14.0-18.0)
[2018-07-28] MEDS: methylPREDNISolone sod succ 125mg/2ml vial IV SCH ×2 (14:00→19:38)
[2018-07-28] MEDS: heparin, porcine 5000 units/ml vial SQ SCH (19:38)
[2018-07-28] MEDS: lactobacillus rhamnosus 10,000 MMU CELLS/CAPSULE PO SCH (19:39)
[2018-07-28] MEDS: temazepam 15mg capsule PO PRN (22:14)
[2018-07-29] MEDS: methylPREDNISolone sod succ 125mg/2ml vial IV SCH ×4 (02:34→19:27)
[2018-07-29 03:00] VITALS: BP 121/52
[2018-07-29] MEDS: ipratropium/albuterol 3ml nebule NEB SCH ×5 (03:13→19:50)
[2018-07-29 05:28] LABS: BASOPHILS % (AUTO) 0 % (0-1); EOSINOPHILS % (AUTO) 0 % (0-6); HEMATOCRIT 37.2 % (42.0-52.0); HEMOGLOBIN 10.8 g/dl (14.0-17.9); LYMPHOCYTES # (AUTO) 0.5 X10'3 (1.1-4.8); LYMPHOCYTES % (AUTO) 5.2 % (21-51); MEAN CORPUSCULAR HEMOGLOBIN 18.3 PG (27.0-31.0); MEAN CORPUSCULAR HGB CONC 29.1 % (33.0-36.5); MEAN CORPUSCULAR VOLUME 62.8 FL (78-98); MEAN PLATELET VOLUME 10.6 FL (7.4-10.4); MONOCYTES # (AUTO) 0.2 X10'3 (0-0.9); MONOCYTES % (AUTO) 2.7 % (2-12); NEUTROPHILS % (AUTO) 92.1 % (42-75); PLATELET COUNT 219 X10'3 (140-440); RED BLOOD COUNT 5.92 X10'6 (4.70-6.10); RED CELL DISTRIBUTION WIDTH 17.5 % (11.5-14.5); WHITE BLOOD COUNT 8.7 X10'3 (4.5-11.0)
[2018-07-29 05:43] LABS: ALANINE AMINOTRANSFERASE 28 U/L (12-78); ALBUMIN 3.2 G/DL (3.4-5.0); ALKALINE PHOSPHATASE 83 IU/L (46-116); ANION GAP 6 (8-16); ASPARTATE AMINO TRANSFERASE 19 U/L (10-37); BILIRUBIN,TOTAL 0.5 MG/DL (0.1-1.0); BLOOD UREA NITROGEN 21 MG/DL (7-18); BUN/CREATININE RATIO 22.1 (5.4-32.0); CALCIUM 8.1 MG/DL (8.5-10.1); CHLORIDE 109 MMOL/L (99-107); CREATININE 0.95 MG/DL (0.60-1.10); GLUCOSE 134 MG/DL (70-104); POTASSIUM 3.6 MMOL/L (3.5-5.1); SODIUM 149 MMOL/L (135-145); TOTAL PROTEIN 6.4 G/DL (6.4-8.2); eGFR 76 ML/MIN
[2018-07-29 06:00] VITALS: BP 134/71
[2018-07-29] MEDS: diltiazem CD 180mg cap (once-daily) PO SCH (07:10)
[2018-07-29] MEDS: aspirin 81mg tab.chew PO SCH (07:10)
[2018-07-29] MEDS: lactobacillus rhamnosus 10,000 MMU CELLS/CAPSULE PO SCH ×2 (07:10→19:27)
[2018-07-29] MEDS: famotidine 20mg tablet PO SCH ×2 (07:10→19:27)
[2018-07-29] MEDS: docusate sod 100mg capsule PO SCH ×2 (07:10→19:28)
[2018-07-29] MEDS: heparin, porcine 5000 units/ml vial SQ SCH ×2 (07:10→19:27)
[2018-07-29] MEDS: CefTRIAXone/D5W-Rocephin 1gm 50 ML IV SCH (09:22)
[2018-07-29] MEDS: DEXTROSE 5% IV SCH ×2 (09:47→21:35)
[2018-07-29] MEDS: POTASSIUM CL IV SCH ×2 (09:47→21:35)
[2018-07-29] MEDS: WATER IV SCH ×2 (09:47→21:35)
[2018-07-29 11:00] VITALS: BP 145/80
[2018-07-29 11:36] LABS: ABG BASE EXCESS 2.4 mmol/L (-2.0-3.0); ABG HCO3 28.2 mmol/L (22.0-26.0); ABG OXYGEN SATURATION 93.2 % (95-98); ABG PCO2 (T) 48.6 mmHg (35.0-48.0); ABG PH (T) 7.381 (7.350-7.450); ABG PO2 (T) 66.8 mmHg (83-108); ALLEN'S TEST Positive; FCOHb 0.4 % (0.5-1.5); FLOW 4 L/min; FMetHb 0.3 % (0.3-1.12); FO2Hb 92.5 % (94-100); RESPIRATORY RATE (OBSERVED) 18 b/min
[2018-07-29 14:03] LABS: ALBUMIN 3.4 G/DL (3.4-5.0); ANION GAP 7 (8-16); BLOOD UREA NITROGEN 22 MG/DL (7-18); CALCIUM 8.3 MG/DL (8.5-10.1); CHLORIDE 105 MMOL/L (99-107); CREATININE 1.16 MG/DL (0.60-1.10); GLUCOSE 238 MG/DL (70-104); POTASSIUM 3.1 MMOL/L (3.5-5.1); SODIUM 145 MMOL/L (135-145); TOTAL CARBON DIOXIDE 33.5 MMOL/L (24-32); eGFR 60 ML/MIN
[2018-07-29 15:00] VITALS: BP 142/72
[2018-07-29] MEDS ORDERED: potassium Cl 20 mEq SR tablet PO PRN (16:05)
[2018-07-29] MEDS ORDERED: magnesium 4gm in 100ml NS 100 ML IV PRN (16:05)
[2018-07-29] MEDS ORDERED: magnesium Cl slow-release 64mg tablet PO PRN (16:05)
[2018-07-29] MEDS ORDERED: potassium Cl 40MEQ/NS 500ml 500 ML IV PRN ×2 (16:05)
[2018-07-29] MEDS: levoFLOXACIN-Levaquin 750MG/D5 150 ML IV SCH (16:25)
[2018-07-29 18:00] VITALS: BP 144/60
[2018-07-29 22:00] VITALS: BP 156/82
[2018-07-30] VITALS (7 sets, daily range): BP systolic 140–154; BP diastolic 73–88
[2018-07-30] MEDS: ipratropium/albuterol 3ml nebule NEB SCH ×7 (00:09→23:18)
[2018-07-30] MEDS: WATER IV SCH ×2 (01:10→16:59)
[2018-07-30] MEDS: DEXTROSE 5% IV SCH ×2 (01:10→16:59)
[2018-07-30] MEDS: POTASSIUM CL IV SCH ×2 (01:10→16:59)
[2018-07-30] MEDS: potassium Cl 20 mEq SR tablet PO PRN ×3 (01:38→19:18)
[2018-07-30 05:48] LABS: ALANINE AMINOTRANSFERASE 23 U/L (12-78); ALBUMIN 3.5 G/DL (3.4-5.0); ALBUMIN/GLOBULIN RATIO 1.1 (1.1-1.5); ALKALINE PHOSPHATASE 75 IU/L (46-116); ANION GAP 5 (8-16); ASPARTATE AMINO TRANSFERASE 12 U/L (10-37); BILIRUBIN,TOTAL 0.5 MG/DL (0.1-1.0); BLOOD UREA NITROGEN 20 MG/DL (7-18); BUN/CREATININE RATIO 18.7 (5.4-32.0); CALCIUM 8.6 MG/DL (8.5-10.1); CHLORIDE 106 MMOL/L (99-107); CREATININE 1.07 MG/DL (0.60-1.10); GLUCOSE 152 MG/DL (70-104); POTASSIUM 3.4 MMOL/L (3.5-5.1); SODIUM 145 MMOL/L (135-145); TOTAL PROTEIN 6.7 G/DL (6.4-8.2); eGFR 66 ML/MIN
[2018-07-30] MEDS: heparin, porcine 5000 units/ml vial SQ SCH (08:39)
[2018-07-30] MEDS: methylPREDNISolone sod succ 125mg/2ml vial IV SCH ×2 (08:40→19:18)
[2018-07-30] MEDS ORDERED: LORazepam 2 mg/ml vial IV ONE (08:40)
[2018-07-30] MEDS: diltiazem CD 180mg cap (once-daily) PO SCH (08:40)
[2018-07-30] MEDS: lactobacillus rhamnosus 10,000 MMU CELLS/CAPSULE PO SCH ×2 (08:41→19:17)
[2018-07-30] MEDS: famotidine 20mg tablet PO SCH ×2 (08:41→19:17)
[2018-07-30] MEDS: levoFLOXACIN-Levaquin 750MG/D5 150 ML IV SCH (08:41)
[2018-07-30] MEDS: aspirin 81mg tab.chew PO SCH (08:41)
[2018-07-30] MEDS: docusate sod 100mg capsule PO SCH ×2 (08:41→19:17)
[2018-07-30] MEDS: HYDROcodone/acetaminophen 5mg/325mg tablet PO PRN (13:46)
[2018-07-30] MEDS ORDERED: BUPR1TAB36 SL (15:57)
[2018-07-31] VITALS (16 sets, daily range): BP systolic 115–184; BP diastolic 62–101
[2018-07-31] MEDS: potassium Cl 20 mEq SR tablet PO PRN (00:50)
[2018-07-31] MEDS: ipratropium/albuterol 3ml nebule NEB SCH ×6 (03:37→23:40)
[2018-07-31] MEDS: DEXTROSE 5% IV SCH (05:19)
[2018-07-31] MEDS: WATER IV SCH (05:19)
[2018-07-31] MEDS: POTASSIUM CL IV SCH (05:19)
[2018-07-31 05:59] LABS: ALANINE AMINOTRANSFERASE 20 U/L (12-78); ALBUMIN 3.1 G/DL (3.4-5.0); ALBUMIN/GLOBULIN RATIO 1.1 (1.1-1.5); ALKALINE PHOSPHATASE 65 IU/L (46-116); ANION GAP 4 (8-16); ASPARTATE AMINO TRANSFERASE 11 U/L (10-37); BILIRUBIN,TOTAL 0.6 MG/DL (0.1-1.0); BLOOD UREA NITROGEN 23 MG/DL (7-18); BUN/CREATININE RATIO 21.9 (5.4-32.0); CALCIUM 8.6 MG/DL (8.5-10.1); CHLORIDE 109 MMOL/L (99-107); CREATININE 1.05 MG/DL (0.60-1.10); GLUCOSE 157 MG/DL (70-104); POTASSIUM 4.1 MMOL/L (3.5-5.1); SODIUM 146 MMOL/L (135-145); TOTAL CARBON DIOXIDE 33.4 MMOL/L (24-32); eGFR 67 ML/MIN
[2018-07-31] MEDS ORDERED: MIDAZolam 5mg/5ml vial ONE (07:33)
[2018-07-31] MEDS ORDERED: meperidine/PF 100mg/ml syringe ONE (07:33)
[2018-07-31] MEDS ORDERED: fentaNYL/PF 50MCG/1 ML 2ML syringe ONE (07:33)
[2018-07-31] MEDS ORDERED: iohexol 300 MG/1 ML 50ml polymer ONE (07:34)
[2018-07-31] MEDS ORDERED: glucagon, human recombinant 1mg kit ONE (07:34)
[2018-07-31] MEDS ORDERED: LIDOcaine Viscous 15ml cup ONE (07:34)
[2018-07-31] MEDS ORDERED: diphenhydrAMINE 50 mg/ml inj ONE (07:34)
[2018-07-31] MEDS: methylPREDNISolone sod succ 125mg/2ml vial IV SCH ×2 (07:48→19:07)
[2018-07-31] MEDS: diltiazem CD 180mg cap (once-daily) PO SCH (07:48)
[2018-07-31] MEDS: lactobacillus rhamnosus 10,000 MMU CELLS/CAPSULE PO SCH ×2 (08:00→19:07)
[2018-07-31] MEDS: famotidine 20mg tablet PO SCH ×2 (08:00→19:07)
[2018-07-31] MEDS: docusate sod 100mg capsule PO SCH ×2 (08:00→19:07)
[2018-07-31] MEDS: aspirin 81mg tab.chew PO SCH (08:30)
[2018-07-31] MEDS ORDERED: flumazenil 0.1 mg/ml inj. IV ONE (13:50)
[2018-07-31] MEDS ORDERED: naloxone 0.4 mg/ml inj ONE (13:50)
[2018-08-01 03:00] VITALS: BP 97/55
[2018-08-01] MEDS: ipratropium/albuterol 3ml nebule NEB SCH ×6 (04:02→20:47)
[2018-08-01 05:18] LABS: BASOPHILS % (AUTO) 0 % (0-1); EOSINOPHILS # (AUTO) 0.2 X10'3 (0-0.9); EOSINOPHILS % (AUTO) 1.3 % (0-6); HEMATOCRIT 32.9 % (42.0-52.0); HEMOGLOBIN 9.8 g/dl (14.0-17.9); LYMPHOCYTES # (AUTO) 0.4 X10'3 (1.1-4.8); LYMPHOCYTES % (AUTO) 3.5 % (21-51); MEAN CORPUSCULAR HEMOGLOBIN 18.4 PG (27.0-31.0); MEAN CORPUSCULAR HGB CONC 29.7 % (33.0-36.5); MEAN CORPUSCULAR VOLUME 61.9 FL (78-98); MEAN PLATELET VOLUME 8.9 FL (7.4-10.4); MONOCYTES # (AUTO) 0.5 X10'3 (0-0.9); MONOCYTES % (AUTO) 4.6 % (2-12); NEUTROPHILS # (AUTO) 10.6 X10'3 (1.8-7.7); NEUTROPHILS % (AUTO) 90.6 % (42-75); PLATELET COUNT 237 X10'3 (140-440); RED BLOOD COUNT 5.32 X10'6 (4.70-6.10); RED CELL DISTRIBUTION WIDTH 17.1 % (11.5-14.5); WHITE BLOOD COUNT 11.7 X10'3 (4.5-11.0)
[2018-08-01 05:24] LABS: ALANINE AMINOTRANSFERASE 110 U/L (12-78); ALBUMIN 2.8 G/DL (3.4-5.0); ALBUMIN/GLOBULIN RATIO 1.1 (1.1-1.5); ALKALINE PHOSPHATASE 59 IU/L (46-116); ANION GAP 3 (8-16); ASPARTATE AMINO TRANSFERASE 63 U/L (10-37); BLOOD UREA NITROGEN 34 MG/DL (7-18); BUN/CREATININE RATIO 33.3 (5.4-32.0); CALCIUM 8.2 MG/DL (8.5-10.1); CHLORIDE 108 MMOL/L (99-107); CREATININE 1.02 MG/DL (0.60-1.10); GLUCOSE 192 MG/DL (70-104); MAGNESIUM 2.2 MG/DL (1.5-2.4); POTASSIUM 4.8 MMOL/L (3.5-5.1); SODIUM 144 MMOL/L (135-145); TOTAL CARBON DIOXIDE 32.9 MMOL/L (24-32); TOTAL PROTEIN 5.4 G/DL (6.4-8.2); eGFR 70 ML/MIN
[2018-08-01 05:26] LABS: ANISOCYTOSIS 1+; HYPOCHROMASIA 1+; MICROCYTOSIS 2+; PLATELET ESTIMATE NORMAL
[2018-08-01 05:27] LABS: ELLIPTOCYTES 1+; SPHEROCYTES FEW
[2018-08-01 07:00] VITALS: BP 112/69
[2018-08-01] MEDS: diltiazem CD 180mg cap (once-daily) PO SCH (07:48)
[2018-08-01] MEDS: methylPREDNISolone sod succ 125mg/2ml vial IV SCH (07:48)
[2018-08-01] MEDS: aspirin 81mg tab.chew PO SCH (07:49)
[2018-08-01] MEDS: levoFLOXACIN-Levaquin 750MG/D5 150 ML IV SCH (07:49)
[2018-08-01] MEDS: lactobacillus rhamnosus 10,000 MMU CELLS/CAPSULE PO SCH ×2 (07:49→21:50)
[2018-08-01] MEDS: famotidine 20mg tablet PO SCH ×2 (07:49→21:50)
[2018-08-01] MEDS: docusate sod 100mg capsule PO SCH ×2 (07:49→19:31)
[2018-08-01 19:00] VITALS: BP 148/67
[2018-08-01 19:52] LABS: HEMATOCRIT 31.7 % (42.0-52.0); HEMOGLOBIN 9.4 g/dl (14.0-17.9); MEAN CORPUSCULAR HEMOGLOBIN 18.4 PG (27.0-31.0); MEAN CORPUSCULAR HGB CONC 29.8 % (33.0-36.5); MEAN CORPUSCULAR VOLUME 61.6 FL (78-98); MEAN PLATELET VOLUME 8.7 FL (7.4-10.4); PLATELET COUNT 257 X10'3 (140-440); RED BLOOD COUNT 5.14 X10'6 (4.70-6.10); RED CELL DISTRIBUTION WIDTH 16.9 % (11.5-14.5); WHITE BLOOD COUNT 12.6 X10'3 (4.5-11.0)
[2018-08-01] MEDS: HYDROcodone/acetaminophen 5mg/325mg tablet PO PRN (21:50)
[2018-08-01 23:00] VITALS: BP 124/72
[2018-08-01] MEDS: temazepam 15mg capsule PO PRN (23:32)
[2018-08-02 03:00] VITALS: BP 125/58
[2018-08-02 06:01] LABS: BASOPHILS % (AUTO) 0.1 % (0-1); EOSINOPHILS % (AUTO) 0 % (0-6); HEMATOCRIT 28.4 % (42.0-52.0); HEMOGLOBIN 8.5 g/dl (14.0-17.9); LYMPHOCYTES # (AUTO) 0.6 X10'3 (1.1-4.8); LYMPHOCYTES % (AUTO) 4.9 % (21-51); MEAN CORPUSCULAR HEMOGLOBIN 18.3 PG (27.0-31.0); MEAN PLATELET VOLUME 8.9 FL (7.4-10.4); NEUTROPHILS # (AUTO) 10.9 X10'3 (1.8-7.7); PLATELET COUNT 233 X10'3 (140-440); RED BLOOD COUNT 4.65 X10'6 (4.70-6.10); RED CELL DISTRIBUTION WIDTH 16.8 % (11.5-14.5); WHITE BLOOD COUNT 12.5 X10'3 (4.5-11.0)
[2018-08-02 06:08] LABS: ALANINE AMINOTRANSFERASE 62 U/L (12-78); ALBUMIN 2.8 G/DL (3.4-5.0); ALBUMIN/GLOBULIN RATIO 1.2 (1.1-1.5); ALKALINE PHOSPHATASE 53 IU/L (46-116); ANION GAP 5 (8-16); ASPARTATE AMINO TRANSFERASE 18 U/L (10-37); BILIRUBIN,TOTAL 0.8 MG/DL (0.1-1.0); BLOOD UREA NITROGEN 46 MG/DL (7-18); BUN/CREATININE RATIO 42.6 (5.4-32.0); CALCIUM 8.9 MG/DL (8.5-10.1); CHLORIDE 110 MMOL/L (99-107); CREATININE 1.08 MG/DL (0.60-1.10); GLUCOSE 122 MG/DL (70-104); MAGNESIUM 2.4 MG/DL (1.5-2.4); POTASSIUM 4.3 MMOL/L (3.5-5.1); SODIUM 147 MMOL/L (135-145); TOTAL CARBON DIOXIDE 32.3 MMOL/L (24-32); TOTAL PROTEIN 5.2 G/DL (6.4-8.2); eGFR 65 ML/MIN
[2018-08-02 06:37] LABS: ANISOCYTOSIS 1+; HYPOCHROMASIA 1+; MICROCYTOSIS 2+; PLATELET ESTIMATE NORMAL
[2018-08-02 06:38] LABS: LARGE PLATELETS FEW; POLYCHROMASIA FEW
[2018-08-02 07:00] VITALS: BP 126/56
[2018-08-02] MEDS: docusate sod 100mg capsule PO SCH ×2 (07:44→20:00)
[2018-08-02] MEDS: aspirin 81mg tab.chew PO SCH (07:44)
[2018-08-02] MEDS: ipratropium/albuterol 3ml nebule NEB SCH ×4 (07:53→20:48)
[2018-08-02] MEDS ORDERED: methylPREDNISolone sod succ/PF 40mg inj. IV SCH (08:00)
[2018-08-02] MEDS: lactobacillus rhamnosus 10,000 MMU CELLS/CAPSULE PO SCH ×2 (08:18→21:16)
[2018-08-02] MEDS: famotidine 20mg tablet PO SCH ×2 (08:18→21:15)
[2018-08-02] MEDS: diltiazem CD 180mg cap (once-daily) PO SCH (08:18)
[2018-08-02] MEDS: HYDROcodone/acetaminophen 5mg/325mg tablet PO PRN ×2 (08:30→21:16)
[2018-08-02 11:00] VITALS: BP 134/73
[2018-08-02] MEDS ORDERED: dextrose 5%-normal saline 1,000 ML IV SCH (12:00)
[2018-08-02 12:12] LABS: HEMATOCRIT 31.1 % (42.0-52.0); HEMOGLOBIN 9.2 g/dl (14.0-17.9); MEAN CORPUSCULAR HEMOGLOBIN 18.1 PG (27.0-31.0); MEAN CORPUSCULAR HGB CONC 29.6 % (33.0-36.5); MEAN CORPUSCULAR VOLUME 61.1 FL (78-98); MEAN PLATELET VOLUME 8.7 FL (7.4-10.4); PLATELET COUNT 252 X10'3 (140-440); RED BLOOD COUNT 5.08 X10'6 (4.70-6.10); RED CELL DISTRIBUTION WIDTH 17.5 % (11.5-14.5)
[2018-08-02] MEDS: HYDROcodone/acetaminophen 10/325mg tab PO PRN (13:53)
[2018-08-02 15:00] VITALS: BP 141/79
[2018-08-02 18:54] LABS: HEMATOCRIT 27.3 % (42.0-52.0); HEMOGLOBIN 8.1 g/dl (14.0-17.9); MEAN CORPUSCULAR HEMOGLOBIN 18.2 PG (27.0-31.0); MEAN CORPUSCULAR HGB CONC 29.6 % (33.0-36.5); MEAN CORPUSCULAR VOLUME 61.6 FL (78-98); MEAN PLATELET VOLUME 8.5 FL (7.4-10.4); PLATELET COUNT 225 X10'3 (140-440); RED BLOOD COUNT 4.43 X10'6 (4.70-6.10); WHITE BLOOD COUNT 9.1 X10'3 (4.5-11.0)
[2018-08-02 19:00] VITALS: BP 134/64
[2018-08-02] MEDS: BUDESONIDE 0.25 MG/2 ML AMPUL.NEB IH SCH (20:48)
[2018-08-02] MEDS: temazepam 15mg capsule PO PRN (21:15)
[2018-08-02 23:00] VITALS: BP 109/47
[2018-08-03 03:00] VITALS: BP 135/79
[2018-08-03 03:18] LABS: BASOPHILS % (AUTO) 0.1 % (0-1); EOSINOPHILS # (AUTO) 0.2 X10'3 (0-0.9); EOSINOPHILS % (AUTO) 1.6 % (0-6); HEMATOCRIT 27.1 % (42.0-52.0); HEMOGLOBIN 7.9 g/dl (14.0-17.9); LYMPHOCYTES # (AUTO) 0.8 X10'3 (1.1-4.8); LYMPHOCYTES % (AUTO) 7.3 % (21-51); MEAN CORPUSCULAR HEMOGLOBIN 17.9 PG (27.0-31.0); MEAN CORPUSCULAR HGB CONC 29.2 % (33.0-36.5); MEAN CORPUSCULAR VOLUME 61.3 FL (78-98); MEAN PLATELET VOLUME 8.4 FL (7.4-10.4); MONOCYTES % (AUTO) 8.9 % (2-12); NEUTROPHILS # (AUTO) 9.2 X10'3 (1.8-7.7); NEUTROPHILS % (AUTO) 82.1 % (42-75); PLATELET COUNT 245 X10'3 (140-440); RED BLOOD COUNT 4.43 X10'6 (4.70-6.10); RED CELL DISTRIBUTION WIDTH 16.5 % (11.5-14.5); WHITE BLOOD COUNT 11.2 X10'3 (4.5-11.0)
[2018-08-03 03:30] LABS: ALANINE AMINOTRANSFERASE 44 U/L (12-78); ALBUMIN 2.7 G/DL (3.4-5.0); ALBUMIN/GLOBULIN RATIO 1.2 (1.1-1.5); ALKALINE PHOSPHATASE 58 IU/L (46-116); ANION GAP 2 (8-16); ASPARTATE AMINO TRANSFERASE 11 U/L (10-37); BILIRUBIN,TOTAL 0.6 MG/DL (0.1-1.0); BLOOD UREA NITROGEN 35 MG/DL (7-18); BUN/CREATININE RATIO 32.1 (5.4-32.0); CHLORIDE 110 MMOL/L (99-107); CREATININE 1.09 MG/DL (0.60-1.10); GLUCOSE 122 MG/DL (70-104); POTASSIUM 4.1 MMOL/L (3.5-5.1); SODIUM 145 MMOL/L (135-145); TOTAL CARBON DIOXIDE 33.2 MMOL/L (24-32); TOTAL PROTEIN 4.9 G/DL (6.4-8.2); eGFR 65 ML/MIN
[2018-08-03 07:00] VITALS: BP 132/62
[2018-08-03] MEDS: docusate sod 100mg capsule PO SCH ×2 (07:21→20:00)
[2018-08-03] MEDS: diltiazem CD 180mg cap (once-daily) PO SCH (07:44)
[2018-08-03] MEDS: HYDROcodone/acetaminophen 10/325mg tab PO PRN ×2 (07:44→21:06)
[2018-08-03] MEDS: lactobacillus rhamnosus 10,000 MMU CELLS/CAPSULE PO SCH ×2 (07:44→21:07)
[2018-08-03] MEDS: famotidine 20mg tablet PO SCH ×2 (07:44→21:06)
[2018-08-03] MEDS: levoFLOXACIN-Levaquin 750MG/D5 150 ML IV SCH (07:45)
[2018-08-03 07:52] LABS: HEMATOCRIT 29.4 % (42.0-52.0); HEMOGLOBIN 8.7 g/dl (14.0-17.9); MEAN CORPUSCULAR HEMOGLOBIN 18.3 PG (27.0-31.0); MEAN CORPUSCULAR HGB CONC 29.5 % (33.0-36.5); MEAN PLATELET VOLUME 8.4 FL (7.4-10.4); PLATELET COUNT 248 X10'3 (140-440); RED BLOOD COUNT 4.74 X10'6 (4.70-6.10); WHITE BLOOD COUNT 13.3 X10'3 (4.5-11.0)
[2018-08-03] MEDS: ipratropium/albuterol 3ml nebule NEB SCH ×4 (07:52→19:39)
[2018-08-03] MEDS: BUDESONIDE 0.25 MG/2 ML AMPUL.NEB IH SCH ×2 (07:52→19:39)
[2018-08-03 11:00] VITALS: BP 134/65
[2018-08-03] MEDS ORDERED: LORazepam 1 MG tablet PO ONE (12:20)
[2018-08-03 15:00] VITALS: BP 140/66
[2018-08-03 15:58] LABS: HEMOGLOBIN 8.6 g/dl (14.0-17.9); MEAN CORPUSCULAR HEMOGLOBIN 18.2 PG (27.0-31.0); MEAN CORPUSCULAR HGB CONC 29.5 % (33.0-36.5); MEAN CORPUSCULAR VOLUME 61.9 FL (78-98); MEAN PLATELET VOLUME 8.3 FL (7.4-10.4); PLATELET COUNT 248 X10'3 (140-440); RED BLOOD COUNT 4.69 X10'6 (4.70-6.10); RED CELL DISTRIBUTION WIDTH 17.2 % (11.5-14.5); WHITE BLOOD COUNT 15.1 X10'3 (4.5-11.0)
[2018-08-03 19:00] VITALS: BP 136/75
[2018-08-03] MEDS: temazepam 15mg capsule PO PRN (21:07)
[2018-08-03 23:00] VITALS: BP 93/47
[2018-08-04 03:00] VITALS: BP 139/71
[2018-08-04] MEDS ORDERED: LORazepam 1 MG tablet PO PRN (05:00)
[2018-08-04 05:11] LABS: BASOPHILS % (AUTO) 0.2 % (0-1); EOSINOPHILS # (AUTO) 0.6 X10'3 (0-0.9); EOSINOPHILS % (AUTO) 4.5 % (0-6); HEMATOCRIT 27.8 % (42.0-52.0); HEMOGLOBIN 8.3 g/dl (14.0-17.9); LYMPHOCYTES % (AUTO) 16.3 % (21-51); MEAN CORPUSCULAR HEMOGLOBIN 18.4 PG (27.0-31.0); MEAN CORPUSCULAR HGB CONC 29.9 % (33.0-36.5); MEAN CORPUSCULAR VOLUME 61.5 FL (78-98); MEAN PLATELET VOLUME 8.5 FL (7.4-10.4); MONOCYTES # (AUTO) 1.3 X10'3 (0-0.9); MONOCYTES % (AUTO) 10.6 % (2-12); NEUTROPHILS # (AUTO) 8.5 X10'3 (1.8-7.7); NEUTROPHILS % (AUTO) 68.4 % (42-75); PLATELET COUNT 240 X10'3 (140-440); RED BLOOD COUNT 4.51 X10'6 (4.70-6.10); RED CELL DISTRIBUTION WIDTH 17.2 % (11.5-14.5); WHITE BLOOD COUNT 12.4 X10'3 (4.5-11.0)
[2018-08-04] MEDS: HYDROcodone/acetaminophen 5mg/325mg tablet PO PRN ×3 (05:15→21:16)
[2018-08-04 05:31] LABS: ALANINE AMINOTRANSFERASE 33 U/L (12-78); ALBUMIN 2.6 G/DL (3.4-5.0); ALBUMIN/GLOBULIN RATIO 1.1 (1.1-1.5); ALKALINE PHOSPHATASE 53 IU/L (46-116); ANION GAP 3 (8-16); ANISOCYTOSIS 1+; ASPARTATE AMINO TRANSFERASE 10 U/L (10-37); BILIRUBIN,TOTAL 1.3 MG/DL (0.1-1.0); BLOOD UREA NITROGEN 25 MG/DL (7-18); BUN/CREATININE RATIO 24.8 (5.4-32.0); CALCIUM 8.5 MG/DL (8.5-10.1); CHLORIDE 108 MMOL/L (99-107); CREATININE 1.01 MG/DL (0.60-1.10); GLUCOSE 78 MG/DL (70-104); HYPOCHROMASIA 2+; MICROCYTOSIS 2+; PLATELET ESTIMATE NORMAL; POTASSIUM 3.7 MMOL/L (3.5-5.1); SODIUM 144 MMOL/L (135-145); TOTAL CARBON DIOXIDE 33.1 MMOL/L (24-32); eGFR 71 ML/MIN
[2018-08-04 05:32] LABS: POLYCHROMASIA FEW
[2018-08-04 06:30] VITALS: BP 121/51
[2018-08-04] MEDS: lactobacillus rhamnosus 10,000 MMU CELLS/CAPSULE PO SCH ×2 (07:49→19:31)
[2018-08-04] MEDS: docusate sod 100mg capsule PO SCH ×2 (07:49→19:31)
[2018-08-04] MEDS: famotidine 20mg tablet PO SCH ×2 (07:49→19:31)
[2018-08-04] MEDS: predniSONE 20 mg tablet PO SCH (07:49)
[2018-08-04] MEDS: ipratropium/albuterol 3ml nebule NEB SCH ×4 (07:49→19:14)
[2018-08-04] MEDS: diltiazem CD 180mg cap (once-daily) PO SCH (07:50)
[2018-08-04] MEDS ORDERED: LORazepam 2 mg/ml vial IV ONE (09:30)
[2018-08-04 11:00] VITALS: BP 125/68
[2018-08-04 16:27] VITALS: BP 123/66
[2018-08-04 19:00] VITALS: BP 137/72
[2018-08-04] MEDS: temazepam 15mg capsule PO PRN (20:18)
[2018-08-04 23:00] VITALS: BP 109/42
[2018-08-05] VITALS (19 sets, daily range): BP systolic 106–158; BP diastolic 55–83
[2018-08-05] MEDS: HYDROcodone/acetaminophen 5mg/325mg tablet PO PRN (06:34)
[2018-08-05 06:42] LABS: BASOPHILS % (AUTO) 0.2 % (0-1); EOSINOPHILS # (AUTO) 0.4 X10'3 (0-0.9); EOSINOPHILS % (AUTO) 2.9 % (0-6); HEMATOCRIT 28.8 % (42.0-52.0); HEMOGLOBIN 8.5 g/dl (14.0-17.9); LYMPHOCYTES # (AUTO) 1.9 X10'3 (1.1-4.8); LYMPHOCYTES % (AUTO) 14.6 % (21-51); MEAN CORPUSCULAR HEMOGLOBIN 18.3 PG (27.0-31.0); MEAN CORPUSCULAR HGB CONC 29.6 % (33.0-36.5); MEAN PLATELET VOLUME 8.4 FL (7.4-10.4); MONOCYTES # (AUTO) 1.1 X10'3 (0-0.9); MONOCYTES % (AUTO) 8.4 % (2-12); NEUTROPHILS # (AUTO) 9.5 X10'3 (1.8-7.7); NEUTROPHILS % (AUTO) 73.9 % (42-75); PLATELET COUNT 286 X10'3 (140-440); RED BLOOD COUNT 4.65 X10'6 (4.70-6.10); RED CELL DISTRIBUTION WIDTH 16.4 % (11.5-14.5); WHITE BLOOD COUNT 12.9 X10'3 (4.5-11.0)
[2018-08-05 07:07] LABS: ALANINE AMINOTRANSFERASE 27 U/L (12-78); ALBUMIN 2.7 G/DL (3.4-5.0); ALKALINE PHOSPHATASE 53 IU/L (46-116); ANION GAP 4 (8-16); ASPARTATE AMINO TRANSFERASE 14 U/L (10-37); BILIRUBIN,TOTAL 1.1 MG/DL (0.1-1.0); BLOOD UREA NITROGEN 21 MG/DL (7-18); CALCIUM 8.4 MG/DL (8.5-10.1); CHLORIDE 107 MMOL/L (99-107); GLUCOSE 83 MG/DL (70-104); SODIUM 143 MMOL/L (135-145); TOTAL CARBON DIOXIDE 32.2 MMOL/L (24-32); TOTAL PROTEIN 5.4 G/DL (6.4-8.2); eGFR 71 ML/MIN
[2018-08-05] MEDS: BUDESONIDE 0.25 MG/2 ML AMPUL.NEB IH SCH (07:14)
[2018-08-05] MEDS: ipratropium/albuterol 3ml nebule NEB SCH ×4 (07:15→19:35)
[2018-08-05] MEDS: lactobacillus rhamnosus 10,000 MMU CELLS/CAPSULE PO SCH ×2 (07:34→21:53)
[2018-08-05] MEDS: levoFLOXACIN-Levaquin 750MG/D5 150 ML IV SCH (07:34)
[2018-08-05] MEDS: docusate sod 100mg capsule PO SCH ×2 (07:34→20:00)
[2018-08-05] MEDS: famotidine 20mg tablet PO SCH ×2 (07:35→21:53)
[2018-08-05] MEDS: predniSONE 20 mg tablet PO SCH (07:35)
[2018-08-05] MEDS: diltiazem CD 180mg cap (once-daily) PO SCH (07:35)
[2018-08-05 09:06] LABS: PLATELET ESTIMATE NORMAL
[2018-08-05 09:07] LABS: ANISOCYTOSIS 1+; HYPOCHROMASIA 2+; MICROCYTOSIS 2+; POLYCHROMASIA 1+
[2018-08-05 09:09] LABS: ELLIPTOCYTES 1+; TARGET CELLS 1+; TEAR DROP CELLS FEW
[2018-08-05] MEDS: normal saline 1000ml 1,000 ML IV SCH ×2 (12:35→16:40)
[2018-08-05] MEDS ORDERED: iohexol 300 MG/1 ML 50ml polymer ONE (12:58)
[2018-08-05] MEDS ORDERED: glucagon, human recombinant 1mg kit ONE (13:00)
[2018-08-05] MEDS ORDERED: sevoflurane 250ml liquid IH ONE (13:46)
[2018-08-05] MEDS ORDERED: LIDOcaine 2% (20mg/ml) 5ml vial ONE (13:46)
[2018-08-05] MEDS ORDERED: rocuronium 10mg/ml inj IV ONE (13:47)
[2018-08-05] MEDS ORDERED: propofol inj 20 ML IV ONE (13:47)
[2018-08-05] MEDS ORDERED: fentaNYL/PF 50MCG/1 ML 2ML syringe ONE (13:47)
[2018-08-05] MEDS ORDERED: ringers solution, lacted 1,000 ML IV SCH (14:23)
[2018-08-05] MEDS ORDERED: meperidine/PF 25mg/ml syringe IV PRN ×3 (14:25)
[2018-08-05] MEDS ORDERED: proCHLORperazine 10 MG/2 ml inj IV PRN (14:25)
[2018-08-05] MEDS ORDERED: ondansetron/PF 4mg/2ml inj IV PRN (14:25)
[2018-08-05] MEDS ORDERED: morphine 4 MG/ML inj SYRINge IV PRN ×2 (14:25)
[2018-08-05] MEDS ORDERED: glycopyrrolate 0.2mg/ml inj ONE (14:49)
[2018-08-05] MEDS ORDERED: neostigmine methylsulfate 1 MG/ML 10ml vial ONE (14:49)
[2018-08-05] MEDS: temazepam 15mg capsule PO PRN (22:14)
[2018-08-06] VITALS: BP 134/71
[2018-08-06] MEDS: HYDROcodone/acetaminophen 10/325mg tab PO PRN ×3 (01:06→17:24)
[2018-08-06 05:33] LABS: BASOPHILS % (AUTO) 0.1 % (0-1); EOSINOPHILS # (AUTO) 0.5 X10'3 (0-0.9); EOSINOPHILS % (AUTO) 3.2 % (0-6); HEMATOCRIT 27.5 % (42.0-52.0); HEMOGLOBIN 8.2 g/dl (14.0-17.9); LYMPHOCYTES # (AUTO) 1.9 X10'3 (1.1-4.8); LYMPHOCYTES % (AUTO) 11.6 % (21-51); MEAN CORPUSCULAR HEMOGLOBIN 18.5 PG (27.0-31.0); MEAN CORPUSCULAR HGB CONC 29.8 % (33.0-36.5); MEAN CORPUSCULAR VOLUME 62.1 FL (78-98); MEAN PLATELET VOLUME 8.4 FL (7.4-10.4); MONOCYTES # (AUTO) 1.1 X10'3 (0-0.9); MONOCYTES % (AUTO) 6.7 % (2-12); NEUTROPHILS # (AUTO) 12.8 X10'3 (1.8-7.7); NEUTROPHILS % (AUTO) 78.4 % (42-75); PLATELET COUNT 289 X10'3 (140-440); RED BLOOD COUNT 4.43 X10'6 (4.70-6.10); RED CELL DISTRIBUTION WIDTH 16.4 % (11.5-14.5); WHITE BLOOD COUNT 16.3 X10'3 (4.5-11.0)
[2018-08-06 05:53] LABS: ALANINE AMINOTRANSFERASE 25 U/L (12-78); ALBUMIN 2.6 G/DL (3.4-5.0); ALKALINE PHOSPHATASE 51 IU/L (46-116); ANION GAP 7 (8-16); ASPARTATE AMINO TRANSFERASE 10 U/L (10-37); BILIRUBIN,TOTAL 0.8 MG/DL (0.1-1.0); BLOOD UREA NITROGEN 21 MG/DL (7-18); BUN/CREATININE RATIO 17.2 (5.4-32.0); CALCIUM 8.1 MG/DL (8.5-10.1); CHLORIDE 108 MMOL/L (99-107); CREATININE 1.22 MG/DL (0.60-1.10); GLUCOSE 124 MG/DL (70-104); POTASSIUM 3.4 MMOL/L (3.5-5.1); SODIUM 143 MMOL/L (135-145); TOTAL CARBON DIOXIDE 28.3 MMOL/L (24-32); TOTAL PROTEIN 5.1 G/DL (6.4-8.2); eGFR 57 ML/MIN
[2018-08-06 05:57] LABS: ANISOCYTOSIS 1+; ELLIPTOCYTES FEW; HYPOCHROMASIA 2+; MICROCYTOSIS 2+; PLATELET ESTIMATE NORMAL; POLYCHROMASIA 1+
[2018-08-06] MEDS: BUDESONIDE 0.25 MG/2 ML AMPUL.NEB IH SCH (07:51)
[2018-08-06] MEDS: ipratropium/albuterol 3ml nebule NEB SCH ×4 (07:51→20:58)
[2018-08-06 08:00] VITALS: BP 116/63
[2018-08-06] MEDS: docusate sod 100mg capsule PO SCH ×2 (08:00→20:00)
[2018-08-06] MEDS: predniSONE 20 mg tablet PO SCH (08:29)
[2018-08-06] MEDS: lactobacillus rhamnosus 10,000 MMU CELLS/CAPSULE PO SCH ×2 (08:29→21:08)
[2018-08-06] MEDS: famotidine 20mg tablet PO SCH ×2 (08:29→21:08)
[2018-08-06] MEDS: diltiazem CD 180mg cap (once-daily) PO SCH (08:29)
[2018-08-06] MEDS: normal saline 1000ml 1,000 ML IV SCH ×2 (10:37→18:35)
[2018-08-06 11:00] VITALS: BP 102/44
[2018-08-06 18:19] LABS: BASOPHILS % (AUTO) 0 % (0-1); EOSINOPHILS # (AUTO) 0.2 X10'3 (0-0.9); EOSINOPHILS % (AUTO) 1.8 % (0-6); HEMATOCRIT 25.1 % (42.0-52.0); HEMOGLOBIN 7.6 g/dl (14.0-17.9); LYMPHOCYTES # (AUTO) 0.7 X10'3 (1.1-4.8); LYMPHOCYTES % (AUTO) 5.5 % (21-51); MEAN CORPUSCULAR HEMOGLOBIN 18.6 PG (27.0-31.0); MEAN CORPUSCULAR HGB CONC 30.1 % (33.0-36.5); MEAN CORPUSCULAR VOLUME 61.9 FL (78-98); MEAN PLATELET VOLUME 8.3 FL (7.4-10.4); MONOCYTES # (AUTO) 0.4 X10'3 (0-0.9); MONOCYTES % (AUTO) 3.4 % (2-12); NEUTROPHILS # (AUTO) 11.4 X10'3 (1.8-7.7); NEUTROPHILS % (AUTO) 89.3 % (42-75); PLATELET COUNT 260 X10'3 (140-440); RED BLOOD COUNT 4.06 X10'6 (4.70-6.10); RED CELL DISTRIBUTION WIDTH 16.9 % (11.5-14.5); WHITE BLOOD COUNT 12.7 X10'3 (4.5-11.0)
[2018-08-06 19:15] VITALS: BP 129/60
[2018-08-06 23:32] LABS: BASOPHILS % (AUTO) 0.3 % (0-1); EOSINOPHILS # (AUTO) 0.1 X10'3 (0-0.9); HEMATOCRIT 23.7 % (42.0-52.0); HEMOGLOBIN 7.1 g/dl (14.0-17.9); LYMPHOCYTES % (AUTO) 7.9 % (21-51); MEAN CORPUSCULAR HEMOGLOBIN 18.5 PG (27.0-31.0); MEAN CORPUSCULAR VOLUME 61.8 FL (78-98); MEAN PLATELET VOLUME 8.2 FL (7.4-10.4); MONOCYTES # (AUTO) 0.7 X10'3 (0-0.9); MONOCYTES % (AUTO) 5.6 % (2-12); NEUTROPHILS # (AUTO) 10.3 X10'3 (1.8-7.7); NEUTROPHILS % (AUTO) 85.2 % (42-75); PLATELET COUNT 249 X10'3 (140-440); RED BLOOD COUNT 3.83 X10'6 (4.70-6.10); RED CELL DISTRIBUTION WIDTH 16.9 % (11.5-14.5); WHITE BLOOD COUNT 12.1 X10'3 (4.5-11.0)
[2018-08-06] MEDS: temazepam 15mg capsule PO PRN (23:39)
[2018-08-07] VITALS (24 sets, daily range): BP systolic 96–152; BP diastolic 60–80
[2018-08-07] MEDS: normal saline 1000ml 1,000 ML IV SCH ×2 (00:37→15:50)
[2018-08-07 03:53] LABS: BASOPHILS % (AUTO) 0.1 % (0-1); EOSINOPHILS # (AUTO) 0.3 X10'3 (0-0.9); EOSINOPHILS % (AUTO) 2.1 % (0-6); HEMATOCRIT 23.8 % (42.0-52.0); HEMOGLOBIN 7.1 g/dl (14.0-17.9); LYMPHOCYTES # (AUTO) 1.6 X10'3 (1.1-4.8); LYMPHOCYTES % (AUTO) 13.4 % (21-51); MEAN CORPUSCULAR HEMOGLOBIN 18.5 PG (27.0-31.0); MEAN CORPUSCULAR HGB CONC 29.9 % (33.0-36.5); MEAN CORPUSCULAR VOLUME 61.9 FL (78-98); MEAN PLATELET VOLUME 8.4 FL (7.4-10.4); MONOCYTES # (AUTO) 0.9 X10'3 (0-0.9); NEUTROPHILS # (AUTO) 9.5 X10'3 (1.8-7.7); NEUTROPHILS % (AUTO) 77.4 % (42-75); PLATELET COUNT 294 X10'3 (140-440); RED BLOOD COUNT 3.85 X10'6 (4.70-6.10); RED CELL DISTRIBUTION WIDTH 16.6 % (11.5-14.5); WHITE BLOOD COUNT 12.2 X10'3 (4.5-11.0)
[2018-08-07 04:07] LABS: ALANINE AMINOTRANSFERASE 18 U/L (12-78); ALBUMIN 2.4 G/DL (3.4-5.0); ALKALINE PHOSPHATASE 60 IU/L (46-116); ANION GAP 5 (8-16); ASPARTATE AMINO TRANSFERASE 10 U/L (10-37); BILIRUBIN,TOTAL 0.5 MG/DL (0.1-1.0); BLOOD UREA NITROGEN 13 MG/DL (7-18); BUN/CREATININE RATIO 13.7 (5.4-32.0); CALCIUM 7.9 MG/DL (8.5-10.1); CHLORIDE 112 MMOL/L (99-107); CREATININE 0.95 MG/DL (0.60-1.10); GLUCOSE 91 MG/DL (70-104); POTASSIUM 3.4 MMOL/L (3.5-5.1); SODIUM 147 MMOL/L (135-145); TOTAL CARBON DIOXIDE 29.6 MMOL/L (24-32); TOTAL PROTEIN 4.8 G/DL (6.4-8.2); eGFR 76 ML/MIN
[2018-08-07] MEDS: HYDROcodone/acetaminophen 10/325mg tab PO PRN ×2 (04:22→20:00)
[2018-08-07 04:31] LABS: PLATELET ESTIMATE NORMAL
[2018-08-07 04:32] LABS: ANISOCYTOSIS 1+; HYPOCHROMASIA 2+; MICROCYTOSIS 2+
[2018-08-07 04:33] LABS: ELLIPTOCYTES 1+; POIKILOCYTOSIS FEW; POLYCHROMASIA 1+
[2018-08-07] MEDS: ipratropium/albuterol 3ml nebule NEB SCH ×4 (07:40→20:05)
[2018-08-07] MEDS: BUDESONIDE 0.25 MG/2 ML AMPUL.NEB IH SCH (07:40)
[2018-08-07] MEDS: docusate sod 100mg capsule PO SCH ×2 (07:42→20:00)
[2018-08-07] MEDS: lactobacillus rhamnosus 10,000 MMU CELLS/CAPSULE PO SCH ×2 (07:42→19:59)
[2018-08-07] MEDS: predniSONE 20 mg tablet PO SCH (08:08)
[2018-08-07] MEDS: diltiazem CD 180mg cap (once-daily) PO SCH (08:08)
[2018-08-07] MEDS: famotidine 20mg tablet PO SCH ×2 (08:08→19:59)
[2018-08-07] MEDS: levoFLOXACIN-Levaquin 750MG/D5 150 ML IV SCH (08:12)
[2018-08-07] MEDS ORDERED: prednisone 10mg tablet PO SCH (09:00)
[2018-08-07] MEDS ORDERED: MIDAZolam 5mg/5ml vial ONE (14:39)
[2018-08-07] MEDS ORDERED: fentaNYL/PF 50MCG/1 ML 2ML syringe ONE (14:39)
[2018-08-07] MEDS ORDERED: LIDOcaine Viscous 15ml cup ONE (14:39)
[2018-08-07 17:56] LABS: BASOPHILS % (AUTO) 0 % (0-1); EOSINOPHILS # (AUTO) 0.1 X10'3 (0-0.9); HEMATOCRIT 35.1 % (42.0-52.0); HEMOGLOBIN 10.9 g/dl (14.0-17.9); LYMPHOCYTES # (AUTO) 0.7 X10'3 (1.1-4.8); LYMPHOCYTES % (AUTO) 5.8 % (21-51); MEAN CORPUSCULAR HGB CONC 31.2 % (33.0-36.5); MEAN CORPUSCULAR VOLUME 67.3 FL (78-98); MEAN PLATELET VOLUME 8.6 FL (7.4-10.4); MONOCYTES % (AUTO) 0.3 % (2-12); NEUTROPHILS # (AUTO) 11.4 X10'3 (1.8-7.7); NEUTROPHILS % (AUTO) 92.9 % (42-75); PLATELET COUNT 310 X10'3 (140-440); RED BLOOD COUNT 5.21 X10'6 (4.70-6.10); WHITE BLOOD COUNT 12.3 X10'3 (4.5-11.0)
[2018-08-07 18:17] LABS: PLATELET ESTIMATE NORMAL
[2018-08-07 18:18] LABS: ANISOCYTOSIS 3+; ELLIPTOCYTES 2+; HYPOCHROMASIA 2+; MICROCYTOSIS 2+; POLYCHROMASIA FEW
[2018-08-07] MEDS ORDERED: potassium Cl 40MEQ/NS 500ml 500 ML IV PRN ×2 (21:35)
[2018-08-07] MEDS ORDERED: potassium Cl 20 mEq SR tablet PO PRN ×2 (21:35)
[2018-08-07 23:40] LABS: BASOPHILS % (AUTO) 0.4 % (0-1); EOSINOPHILS # (AUTO) 0.1 X10'3 (0-0.9); EOSINOPHILS % (AUTO) 1.2 % (0-6); HEMATOCRIT 32.2 % (42.0-52.0); LYMPHOCYTES # (AUTO) 1.3 X10'3 (1.1-4.8); LYMPHOCYTES % (AUTO) 10.5 % (21-51); MEAN CORPUSCULAR HEMOGLOBIN 20.7 PG (27.0-31.0); MEAN CORPUSCULAR VOLUME 66.9 FL (78-98); MEAN PLATELET VOLUME 8.6 FL (7.4-10.4); MONOCYTES # (AUTO) 0.7 X10'3 (0-0.9); MONOCYTES % (AUTO) 5.8 % (2-12); NEUTROPHILS # (AUTO) 9.9 X10'3 (1.8-7.7); NEUTROPHILS % (AUTO) 82.1 % (42-75); PLATELET COUNT 301 X10'3 (140-440); RED BLOOD COUNT 4.81 X10'6 (4.70-6.10); RED CELL DISTRIBUTION WIDTH 22.8 % (11.5-14.5); WHITE BLOOD COUNT 12.1 X10'3 (4.5-11.0)
[2018-08-07] MEDS: temazepam 15mg capsule PO PRN (23:51)
[2018-08-07 23:59] LABS: PLATELET ESTIMATE NORMAL
[2018-08-08] VITALS: BP 132/66
[2018-08-08] LABS: ANISOCYTOSIS 3+; ELLIPTOCYTES FEW
[2018-08-08 00:01] LABS: LARGE PLATELETS FEW
[2018-08-08] MEDS: normal saline 1000ml 1,000 ML IV SCH ×2 (00:35→10:08)
[2018-08-08 06:02] LABS: BASOPHILS % (AUTO) 0.2 % (0-1); EOSINOPHILS # (AUTO) 0.2 X10'3 (0-0.9); EOSINOPHILS % (AUTO) 1.4 % (0-6); HEMATOCRIT 30.6 % (42.0-52.0); HEMOGLOBIN 9.5 g/dl (14.0-17.9); LYMPHOCYTES # (AUTO) 1.8 X10'3 (1.1-4.8); LYMPHOCYTES % (AUTO) 16.4 % (21-51); MEAN CORPUSCULAR HEMOGLOBIN 20.8 PG (27.0-31.0); MEAN CORPUSCULAR HGB CONC 31.1 % (33.0-36.5); MEAN CORPUSCULAR VOLUME 66.9 FL (78-98); MEAN PLATELET VOLUME 8.8 FL (7.4-10.4); MONOCYTES # (AUTO) 0.8 X10'3 (0-0.9); MONOCYTES % (AUTO) 7.3 % (2-12); NEUTROPHILS % (AUTO) 74.7 % (42-75); PLATELET COUNT 273 X10'3 (140-440); RED BLOOD COUNT 4.57 X10'6 (4.70-6.10); RED CELL DISTRIBUTION WIDTH 22.9 % (11.5-14.5); WHITE BLOOD COUNT 10.8 X10'3 (4.5-11.0)
[2018-08-08] MEDS: ipratropium/albuterol 3ml nebule NEB SCH ×3 (07:06→14:19)
[2018-08-08] MEDS: BUDESONIDE 0.25 MG/2 ML AMPUL.NEB IH SCH (07:06)
[2018-08-08 07:27] LABS: ANISOCYTOSIS 3+; PLATELET ESTIMATE NORMAL
[2018-08-08 07:28] LABS: MICROCYTOSIS 2+
[2018-08-08 07:32] LABS: ELLIPTOCYTES 1+; POLYCHROMASIA FEW
[2018-08-08 07:34] LABS: POIKILOCYTOSIS 1+; TARGET CELLS FEW
[2018-08-08] MEDS: docusate sod 100mg capsule PO SCH (08:00)
[2018-08-08] MEDS ORDERED: prednisone 10mg tablet PO ONE (08:30)
[2018-08-08] MEDS: diltiazem CD 180mg cap (once-daily) PO SCH (09:15)
[2018-08-08] MEDS: HYDROcodone/acetaminophen 10/325mg tab PO PRN (09:15)
[2018-08-08] MEDS: famotidine 20mg tablet PO SCH (09:15)
[2018-08-08] MEDS: lactobacillus rhamnosus 10,000 MMU CELLS/CAPSULE PO SCH (09:15)
[2018-08-08] MEDS ORDERED: PRED10TA23 PO (10:34)
[2018-08-08] MEDS ORDERED: LEVO500T2 PO (10:34)
[2018-08-08] MEDS ORDERED: OMEP40CA37 PO (10:34)
[2018-08-08 10:42] LABS: MICROCYTOSIS 2+
[2018-08-08 10:43] LABS: HYPOCHROMASIA 2+; POLYCHROMASIA FEW
[2018-08-08 11:15] VITALS: BP 127/70
[2018-08-08 12:17] LABS: BASOPHILS % (AUTO) 0 % (0-1); EOSINOPHILS # (AUTO) 0.2 X10'3 (0-0.9); EOSINOPHILS % (AUTO) 1.7 % (0-6); HEMATOCRIT 33.7 % (42.0-52.0); HEMOGLOBIN 10.4 g/dl (14.0-17.9); LYMPHOCYTES % (AUTO) 9.9 % (21-51); MEAN CORPUSCULAR HEMOGLOBIN 20.6 PG (27.0-31.0); MEAN CORPUSCULAR HGB CONC 30.7 % (33.0-36.5); MEAN PLATELET VOLUME 8.5 FL (7.4-10.4); MONOCYTES # (AUTO) 0.3 X10'3 (0-0.9); MONOCYTES % (AUTO) 3.2 % (2-12); NEUTROPHILS % (AUTO) 85.2 % (42-75); PLATELET COUNT 277 X10'3 (140-440); RED BLOOD COUNT 5.03 X10'6 (4.70-6.10); RED CELL DISTRIBUTION WIDTH 23.2 % (11.5-14.5); WHITE BLOOD COUNT 10.6 X10'3 (4.5-11.0)
[2018-08-09] MEDS ORDERED: predniSONE 20 mg tablet PO ONE (08:30)
[2018-08-10] MEDS ORDERED: prednisone 10mg tablet PO ONE (08:30)
== END 2018-08-08 15:00 | disposition home or self-care (01) | DRG 444 ==
LOC: ER 20:11 → ED HOLD 22:33 → PCU 3S 07-28 00:04 → PACU 08-05 13:10 → SUR 3N 08-05 16:01
PROVIDERS: ADMIT Family Medicine; ATTEND Family Medicine
PROC: B32T1ZZ Computerized Tomography (CT Scan) of Left Pulmonary Artery using Low Osmolar Contrast (ICD-10-PCS; 2018-07-27)
PROC: B3201ZZ Computerized Tomography (CT Scan) of Thoracic Aorta using Low Osmolar Contrast (ICD-10-PCS; 2018-07-27)
PROC: B32S1ZZ Computerized Tomography (CT Scan) of Right Pulmonary Artery using Low Osmolar Contrast (ICD-10-PCS; 2018-07-27)
PROC: 5A09357 Assistance with Respiratory Ventilation, Less than 24 Consecutive Hours, Continuous Positive Airway Pressure (ICD-10-PCS; principal; 2018-07-28)
PROC: 0FC98ZZ Extirpation of Matter from Common Bile Duct, Via Natural or Artificial Opening Endoscopic (ICD-10-PCS; 2018-08-05)
PROC: BF101ZZ Fluoroscopy of Bile Ducts using Low Osmolar Contrast (ICD-10-PCS; 2018-08-05)
PROC: 30233N1 Transfusion of Nonautologous Red Blood Cells into Peripheral Vein, Percutaneous Approach (ICD-10-PCS; 2018-08-07)
PROC: 0DJ08ZZ Inspection of Upper Intestinal Tract, Via Natural or Artificial Opening Endoscopic (ICD-10-PCS; 2018-08-07)
DX: K80.51 Calculus of bile duct without cholangitis or cholecystitis with obstruction (principal); I21.A1 Myocardial infarction type 2; J96.21 Acute and chronic respiratory failure with hypoxia; E87.4 Mixed disorder of acid-base balance; E87.0 Hyperosmolality and hypernatremia; J44.1 Chronic obstructive pulmonary disease with (acute) exacerbation; D62 Acute posthemorrhagic anemia; K92.2 Gastrointestinal hemorrhage, unspecified; J44.0 Chronic obstructive pulmonary disease with (acute) lower respiratory infection; E87.5 Hyperkalemia; E86.0 Dehydration; E04.1 Nontoxic single thyroid nodule; E87.6 Hypokalemia; I10 Essential (primary) hypertension; J20.9 Acute bronchitis, unspecified; G89.29 Other chronic pain; M10.9 Gout, unspecified; Z90.49 Acquired absence of other specified parts of digestive tract; Z99.81 Dependence on supplemental oxygen; Z87.891 Personal history of nicotine dependence; Z79.899 Other long term (current) drug therapy
CPT/HCPCS: 36415; 36600; 71045; 71275; 74181; 76001; 76536; 80048; 80053; 80061; 82803; 83036; 83690; 83735; 83880; 84100; 84132; 84145; 84439; 84443; 84480; 84484; 85018; 85025; 85027; 85379; 85610; 85730; 86885; 86900; 86901; 86920; 87040; 87070; 93005; 93306; 94640; 94660; 94760; 96365; 96375; 97162; 97530; 99152; 99153; 99291; A4620; A7000; G0378; J0696; J1100; J1200; J1610; J1644; J1815; J1956; J2001; J2060; J2175; J2250; J2310; J2704; J2710; J2920; J2930; J3010; J3480; J3490; J7030; J7042; J7070; J7120; J7512; P9016; Q9967

== ENCOUNTER 2018-11-04 16:10 | Inpatient (IN) | payer MEDICARE, MEDICAID | END 2018-11-07 11:30 | disposition home or self-care (01) | LOC: ER 16:10 → ED HOLD 21:07 → PCU 3S 23:23 | DX: A41.9 Sepsis, unspecified organism (principal); J18.1 Lobar pneumonia, unspecified organism; J96.21 Acute and chronic respiratory failure with hypoxia; J44.1 Chronic obstructive pulmonary disease with (acute) exacerbation ==

== ENCOUNTER 2019-06-12 15:29 | Inpatient (IN) | payer MEDICARE, MEDICAID ==
[~2019-06-12] VITALS: Ht 165.1 cm; Wt 66.0 kg
[~2019-06-12 15:29] MED LIST changes: +BUPR1TAB36 SL; +DILT-36 PO; -DILT180C95 PO; +FLUT1BLS3 NAS; +LACT1CAP26 PO; +UMEC62.5 NASALCANN
[2019-06-12] MEDS ORDERED: ipratropium/albuterol 3ml nebule NEB ONE (15:45)
[2019-06-12 15:48] LABS: BASOPHILS % (AUTO) 0.2 % (0-1); EOSINOPHILS # (AUTO) 0.1 X10'3 (0-0.9); EOSINOPHILS % (AUTO) 0.9 % (0-6); HEMATOCRIT 41.8 % (42.0-52.0); HEMOGLOBIN 11.9 g/dl (14.0-17.9); LYMPHOCYTES % (AUTO) 10.4 % (21-51); MEAN CORPUSCULAR HEMOGLOBIN 17.9 PG (27.0-31.0); MEAN CORPUSCULAR HGB CONC 28.5 g/dL (33.0-36.5); MEAN CORPUSCULAR VOLUME 62.9 FL (78-98); MEAN PLATELET VOLUME 8.6 FL (7.4-10.4); MONOCYTES # (AUTO) 0.6 X10'3 (0-0.9); MONOCYTES % (AUTO) 6.6 % (2-12); NEUTROPHILS # (AUTO) 7.9 X10'3 (1.8-7.7); NEUTROPHILS % (AUTO) 81.9 % (42-75); PLATELET COUNT 161 X10'3 (140-440); RED BLOOD COUNT 6.64 X10'6 (4.70-6.10); RED CELL DISTRIBUTION WIDTH 17.7 % (11.5-14.5); WHITE BLOOD COUNT 9.6 X10'3 (4.5-11.0)
[2019-06-12] MEDS ORDERED: methylPREDNISolone sod succ 125mg/2ml vial IV ONE (15:50)
[2019-06-12 16:00] LABS: PARTIAL THROMBOPLASTIN TIME 35 SECONDS (22-32)
[2019-06-12 16:03] LABS: ALANINE AMINOTRANSFERASE 7 U/L (12-78); ALBUMIN 3.2 G/DL (3.4-5.0); ALBUMIN/GLOBULIN RATIO 0.8 (1.1-1.5); ALKALINE PHOSPHATASE 84 IU/L (46-116); ANION GAP 5 (8-16); ASPARTATE AMINO TRANSFERASE 11 U/L (10-37); BILIRUBIN,TOTAL 1.5 MG/DL (0.1-1.0); BLOOD UREA NITROGEN 22 MG/DL (7-18); CALCIUM 8.8 MG/DL (8.5-10.1); CHLORIDE 109 MMOL/L (99-107); CREATININE 1.22 MG/DL (0.60-1.10); GLUCOSE 115 MG/DL (70-104); POTASSIUM 5.1 MMOL/L (3.5-5.1); SODIUM 145 MMOL/L (135-145); TOTAL CARBON DIOXIDE 31.2 MMOL/L (24-32); TOTAL PROTEIN 7.3 G/DL (6.4-8.2); eGFR 57 ML/MIN
[2019-06-12] MEDS ORDERED: normal saline 1000ML IV soln IVB ONE (16:05)
--- NOTE | 2019-06-12 16:13 | NUR ---
Per MD, administer NS 1000mL bolus for now and observed for s/s of worsening before hanging the second 1000mL.
[2019-06-12] MEDS ORDERED: CefTRIAXone 2gm/D5W 50ml 50 ML IV ONE (16:15)
[2019-06-12] MEDS ORDERED: azithromycin/NS 500mg/250ml 250 ML IV SCH (16:15)
[2019-06-12 16:16] LABS: ABG BASE EXCESS 2.9 mmol/L (-2.0-3.0); ABG HCO3 31.1 mmol/L (22.0-26.0); ABG OXYGEN SATURATION 91.6 % (95-98); ABG PCO2 (T) 67.9 mmHg (35.0-45.0); ABG PH (T) 7.282 (7.350-7.450); ABG PO2 (T) 63.5 mmHg (83-108); ALLEN'S TEST Positive; FCOHb 1.8 % (0.5-1.5); FLOW 2 L/min; FMetHb 0.2 % (0.3-1.12); FO2Hb 89.8 % (94-100); PATIENT TEMPERATURE 37.7; TOTAL HEMOGLOBIN 12.6 G/dl (14.0-17.9)
[2019-06-12] MEDS ORDERED: DOCU100C59 PO (16:24)
[2019-06-12] MEDS ORDERED: L. A1TAB10 PO (16:24)
[2019-06-12] MEDS ORDERED: ALLO100T PO (16:24)
[2019-06-12] MEDS ORDERED: magnesium hydroxide 30ml (MOM) UD suspension PO PRN (16:40)
[2019-06-12] MEDS ORDERED: HYDROcodone/acetaminophen 5mg/325mg tablet PO PRN (16:40)
[2019-06-12] MEDS ORDERED: morphine 2 MG/ML inj. syringe IV PRN ×2 (16:40)
[2019-06-12] MEDS ORDERED: ondansetron/PF 4mg/2ml inj IV PRN (16:40)
[2019-06-12] MEDS ORDERED: acetaminophen 325mg tablet PO PRN ×2 (16:40)
[2019-06-12] MEDS ORDERED: mag hydrox/Alum hydrox/simeth 30ml oral suspension PO PRN (16:40)
[2019-06-12 16:44] LABS: ANISOCYTOSIS 1+; PLATELET ESTIMATE NORMAL
[2019-06-12 16:45] LABS: ELLIPTOCYTES FEW; MICROCYTOSIS 2+
[2019-06-12 16:46] LABS: HYPOCHROMASIA 2+; POLYCHROMASIA 2+
[2019-06-12] MEDS: normal saline 1000ml 1,000 ML IV SCH ×2 (17:12→19:43)
--- NOTE | 2019-06-12 17:18 | NUR ---
spoke with nursing sup. in regards to having the pt go to pcu instead of med-surg, paged the hospitalist to keep them updated of the same info.
[2019-06-12] MEDS ORDERED: non-formulary drug (Ipratropium/Albuterol Sulfate (Combivent Respimat Inhal Spray) 2 PUFFS IH PRN (17:55)
[2019-06-12] MEDS ORDERED: ipratropium/albuterol 3ml nebule IH PRN (18:15)
[2019-06-12 19:55] VITALS: BP 132/89
[2019-06-12] MEDS ORDERED: ACIDOPHILUS PO SCH (20:00)
[2019-06-12] MEDS: lactobacillus rhamnosus 10,000 MMU CELLS/CAPSULE PO SCH (20:00)
[2019-06-12] MEDS ORDERED: BULGARICUS PO SCH (20:00)
[2019-06-12 23:00] VITALS: BP_SYST 125; BP_SYST 129; BP_SYST 138; BP_DIAS 61; BP_DIAS 66; BP_DIAS 68
[2019-06-13 03:00] VITALS: BP 151/79
[2019-06-13] MEDS: normal saline 1000ml 1,000 ML IV SCH ×2 (04:25→15:44)
[2019-06-13 06:00] VITALS: BP_SYST 117; BP_SYST 163; BP_DIAS 64; BP_DIAS 90
[2019-06-13 06:08] LABS: BASOPHILS % (AUTO) 0 % (0-1); EOSINOPHILS % (AUTO) 0 % (0-6); HEMATOCRIT 42.2 % (42.0-52.0); HEMOGLOBIN 11.9 g/dl (14.0-17.9); LYMPHOCYTES # (AUTO) 0.5 X10'3 (1.1-4.8); MEAN CORPUSCULAR HEMOGLOBIN 17.9 PG (27.0-31.0); MONOCYTES # (AUTO) 0.2 X10'3 (0-0.9)
[2019-06-13 06:11] LABS: LYMPHOCYTES % (AUTO) 4.7 % (21-51); MEAN CORPUSCULAR VOLUME 63.3 FL (78-98); MEAN PLATELET VOLUME 9.2 FL (7.4-10.4); MONOCYTES % (AUTO) 1.5 % (2-12); NEUTROPHILS # (AUTO) 10.9 X10'3 (1.8-7.7); NEUTROPHILS % (AUTO) 93.8 % (42-75); PLATELET COUNT 150 X10'3 (140-440); RED BLOOD COUNT 6.66 X10'6 (4.70-6.10); RED CELL DISTRIBUTION WIDTH 17.4 % (11.5-14.5); WHITE BLOOD COUNT 11.6 X10'3 (4.5-11.0)
[2019-06-13 06:23] LABS: GLUCOSE 141 MG/DL (70-104); SODIUM 146 MMOL/L (135-145)
[2019-06-13 06:24] LABS: ANION GAP 5 (8-16); BLOOD UREA NITROGEN 24 MG/DL (7-18); BUN/CREATININE RATIO 21.4 (5.4-32.0); CALCIUM 8.8 MG/DL (8.5-10.1); CHLORIDE 111 MMOL/L (99-107); CREATININE 1.12 MG/DL (0.60-1.10); POTASSIUM 5.2 MMOL/L (3.5-5.1); TOTAL CARBON DIOXIDE 29.6 MMOL/L (24-32); eGFR 63 ML/MIN
--- NOTE | 2019-06-13 06:29 | NUR ---
Patient in room PCU 3024. I have received report from Erin NINO and had the opportunity to ask questions and assume patient care.
[2019-06-13 07:02] LABS: ANISOCYTOSIS 1+; HYPOCHROMASIA 3+; MICROCYTOSIS 2+; PLATELET ESTIMATE NORMAL; POLYCHROMASIA 1+; SPHEROCYTES FEW
[2019-06-13 07:04] LABS: MEAN CORPUSCULAR HGB CONC 28.3 g/dL (33.0-36.5)
[2019-06-13] MEDS: docusate sod 100mg capsule PO SCH (07:41)
[2019-06-13] MEDS: buprenorphine/naloxone 8mg/2mg SL tablet SL SCH (07:41)
[2019-06-13] MEDS: allopurinol 100mg tablet PO SCH (07:41)
[2019-06-13] MEDS: lactobacillus rhamnosus 10,000 MMU CELLS/CAPSULE PO SCH ×2 (07:41→20:30)
[2019-06-13] MEDS: CefTRIAXone/D5W-Rocephin 1gm 50 ML IV SCH (07:46)
[2019-06-13] MEDS: azithromycin/NS 500mg/250ml 250 ML IV SCH (08:31)
[2019-06-13 11:00] VITALS: BP_SYST 115; BP_SYST 132; BP_SYST 141; BP_DIAS 60; BP_DIAS 67; BP_DIAS 76
[2019-06-13] MEDS: ipratropium/albuterol 3ml nebule IH SCH ×4 (12:14→23:02)
[2019-06-13 15:00] VITALS: BP 126/78
[2019-06-13 18:00] VITALS: BP 124/66
--- NOTE | 2019-06-13 18:00 | NUR ---
Problems reprioritized. Patient report given, questions answered & plan of care reviewed with Cesar RN.
--- NOTE | 2019-06-13 18:15 | NUR ---
Patient in room PCU 3024. I have received report from MICA Wisdom and had the opportunity to ask questions and assume patient care.
--- NOTE | 2019-06-13 18:33 | NUR ---
Patient in room PCU 3024. I have received report from Alyx NINO and had the opportunity to ask questions and assume patient care.
[2019-06-13] MEDS ORDERED: sodium chloride 0.45% 1,000 ML IV SCH (18:50)
[2019-06-13 23:00] VITALS: BP 107/71
[2019-06-14 03:00] VITALS: BP 117/73
[2019-06-14] MEDS: ipratropium/albuterol 3ml nebule IH SCH ×4 (03:24→15:02)
--- NOTE | 2019-06-14 05:01 | NUR ---
NOTIFIED PAGER ID: [phone] MESSAGE: EmilyYoung, [id number]- january we extend his tele order for continued O2 observation, he has been frequently desating requiring O2 adjustments. Cesar NINO
--- NOTE | 2019-06-14 05:26 | NUR ---
I have reviewed Mercy Mcnally's charting and agree.
[2019-06-14 06:00] VITALS: BP 133/77
[2019-06-14 06:18] LABS: BASOPHILS % (AUTO) 0.1 % (0-1); EOSINOPHILS % (AUTO) 0 % (0-6); HEMOGLOBIN 11.1 g/dl (14.0-17.9); LYMPHOCYTES # (AUTO) 0.9 X10'3 (1.1-4.8); LYMPHOCYTES % (AUTO) 9.9 % (21-51); MEAN CORPUSCULAR HEMOGLOBIN 17.9 PG (27.0-31.0); MEAN CORPUSCULAR HGB CONC 28.6 g/dL (33.0-36.5); MEAN CORPUSCULAR VOLUME 62.8 FL (78-98); MONOCYTES # (AUTO) 0.5 X10'3 (0-0.9); NEUTROPHILS # (AUTO) 7.5 X10'3 (1.8-7.7); PLATELET COUNT 158 X10'3 (140-440); RED BLOOD COUNT 6.21 X10'6 (4.70-6.10); RED CELL DISTRIBUTION WIDTH 17.8 % (11.5-14.5); WHITE BLOOD COUNT 8.9 X10'3 (4.5-11.0)
[2019-06-14 06:20] LABS: ALBUMIN 2.7 G/DL (3.4-5.0); ANION GAP 4 (8-16); BLOOD UREA NITROGEN 27 MG/DL (7-18); BUN/CREATININE RATIO 26.7 (5.4-32.0); CALCIUM 8.4 MG/DL (8.5-10.1); CHLORIDE 113 MMOL/L (99-107); CREATININE 1.01 MG/DL (0.60-1.10); GLUCOSE 103 MG/DL (70-104); POTASSIUM 4.9 MMOL/L (3.5-5.1); SODIUM 147 MMOL/L (135-145); TOTAL CARBON DIOXIDE 29.8 MMOL/L (24-32); eGFR 71 ML/MIN
--- NOTE | 2019-06-14 06:53 | NUR ---
Problems reprioritized. Patient report given, questions answered & plan of care reviewed with Chelsea Blackmon RN.
[2019-06-14 07:24] LABS: ANISOCYTOSIS 1+; ELLIPTOCYTES FEW; HYPOCHROMASIA 2+; MICROCYTOSIS 2+; PLATELET ESTIMATE NORMAL; POIKILOCYTOSIS FEW
[2019-06-14] MEDS ORDERED: methylPREDNISolone sod succ 125mg/2ml vial IV SCH (08:00)
[2019-06-14] MEDS: azithromycin/NS 500mg/250ml 250 ML IV SCH (08:25)
[2019-06-14] MEDS: allopurinol 100mg tablet PO SCH (08:26)
[2019-06-14] MEDS: lactobacillus rhamnosus 10,000 MMU CELLS/CAPSULE PO SCH (08:26)
[2019-06-14] MEDS: docusate sod 100mg capsule PO SCH (08:26)
[2019-06-14] MEDS: buprenorphine/naloxone 8mg/2mg SL tablet SL SCH (08:27)
[2019-06-14] MEDS: CefTRIAXone/D5W-Rocephin 1gm 50 ML IV SCH (08:27)
[2019-06-14] MEDS ORDERED: guaiFENesin/DM 10ml UD oral syrup PO SCH (09:35)
[2019-06-14 11:00] VITALS: BP 133/76
[2019-06-14] MEDS ORDERED: IPRA3AMP9 IH (14:21)
[2019-06-14] MEDS ORDERED: ROBDML PO (14:21)
[2019-06-14] MEDS ORDERED: LEVO500T2 PO (14:21)
[2019-06-14 15:00] VITALS: BP 146/75
--- NOTE | 2019-06-14 16:30 | NUR ---
Discharged Home on home oxygen. Pt. has own portable supply. Written discharge instructions provided in Uzbek. Family is fluent in Uzbek and can interpret. Transported in wheelchair to family car, son in driving. IV and Telemetry are discontinued. Home medication prescription changes are in detailed in discharge information. Questions are answered to the satisfaction of the family.
[2019-06-15] MEDS ORDERED: methylPREDNISolone sod succ/PF 40mg inj. IV SCH (08:00)
== END 2019-06-14 16:08 | disposition home or self-care (01) | DRG 193 ==
LOC: ER 15:29 → SUR 3N 18:50 → PCU 3S 19:09
PROVIDERS: ADMIT Internal Medicine; ATTEND Internal Medicine
DX: J18.1 Lobar pneumonia, unspecified organism (principal); J96.21 Acute and chronic respiratory failure with hypoxia; J44.0 Chronic obstructive pulmonary disease with (acute) lower respiratory infection; E87.5 Hyperkalemia; N28.9 Disorder of kidney and ureter, unspecified; G89.29 Other chronic pain; M10.9 Gout, unspecified; Z99.81 Dependence on supplemental oxygen; Z90.49 Acquired absence of other specified parts of digestive tract; Z79.899 Other long term (current) drug therapy; Z87.891 Personal history of nicotine dependence
CPT/HCPCS: 36415; 36600; 71045; 80048; 80053; 82803; 83605; 83880; 85018; 85025; 85610; 85730; 87040; 87081; 93005; 94640; 94760; 96365; 96374; 99285; G0378; J0456; J0696; J2405; J2930; J7030

== ENCOUNTER 2019-09-14 12:10 | Inpatient (IN) | payer MEDICARE, MEDICAID ==
[~2019-09-14] VITALS: Ht 165.1 cm; Wt 79.9 kg
[~2019-09-14 12:10] MED LIST changes: +ALLO100T PO; -DILT-36 PO; +DOCU100C59 PO; -FAMO-128 PO; -FLUT1BLS3 NAS; -IPRA3AMP31 IH; +IPRA3AMP9 IH; +L. A1TAB10 PO; -LACT1CAP26 PO; +ROBDML PO; -UMEC62.5 NASALCANN
[2019-09-14] MEDS ORDERED: normal saline 1000ML IV soln IVB ONE (13:45)
[2019-09-14 14:10] LABS: EOSINOPHILS # (AUTO) 0.1 X10'3 (0-0.9); MEAN CORPUSCULAR HGB CONC 28.6 g/dL (33.0-36.5); WHITE BLOOD COUNT 6.5 X10'3 (4.5-11.0)
[2019-09-14 14:11] LABS: BASOPHILS % (AUTO) 0.3 % (0-1); EOSINOPHILS % (AUTO) 1.9 % (0-6); HEMATOCRIT 45.9 % (42.0-52.0); HEMOGLOBIN 13.1 g/dl (14.0-17.9); LYMPHOCYTES # (AUTO) 1.1 X10'3 (1.1-4.8); MEAN CORPUSCULAR HEMOGLOBIN 18.4 PG (27.0-31.0); MEAN CORPUSCULAR VOLUME 64.2 FL (78-98); MEAN PLATELET VOLUME 8.6 FL (7.4-10.4); MONOCYTES # (AUTO) 0.3 X10'3 (0-0.9); MONOCYTES % (AUTO) 5.3 % (2-12); NEUTROPHILS # (AUTO) 4.9 X10'3 (1.8-7.7); NEUTROPHILS % (AUTO) 75.5 % (42-75); PLATELET COUNT 154 X10'3 (140-440); RED BLOOD COUNT 7.15 X10'6 (4.70-6.10); RED CELL DISTRIBUTION WIDTH 17.5 % (11.5-14.5)
[2019-09-14 14:20] LABS: PARTIAL THROMBOPLASTIN TIME 32 SECONDS (22-32)
[2019-09-14 14:22] LABS: ALANINE AMINOTRANSFERASE 17 U/L (12-78); ALBUMIN 3.6 G/DL (3.4-5.0); ALKALINE PHOSPHATASE 83 IU/L (46-116); ANION GAP 2 (8-16); ASPARTATE AMINO TRANSFERASE 17 U/L (10-37); BLOOD UREA NITROGEN 24 MG/DL (7-18); CALCIUM 8.8 MG/DL (8.5-10.1); CHLORIDE 108 MMOL/L (99-107); GLUCOSE 94 MG/DL (70-104); POTASSIUM 5.2 MMOL/L (3.5-5.1); SODIUM 146 MMOL/L (135-145); TOTAL CARBON DIOXIDE 35.9 MMOL/L (24-32); TOTAL PROTEIN 7.2 G/DL (6.4-8.2); eGFR 71 ML/MIN
[2019-09-14 14:24] LABS: PLATELET ESTIMATE NORMAL
[2019-09-14 14:26] LABS: ANISOCYTOSIS 1+; HYPOCHROMASIA 3+; MICROCYTOSIS 3+; POLYCHROMASIA 1+
[2019-09-14 14:30] LABS: ETHANOL < 0.010 GM/DL (0.0-0.010); TROPONIN I 0.23 NG/ML (0.0-0.05)
[2019-09-14 14:49] LABS: URINE AMPHETAMINE SCREEN NEGATIVE (Neg); URINE BARBITUATE SCREEN NEGATIVE (Neg); URINE BENZODIAZEPINES SCREEN NEGATIVE (Neg); URINE CANNABINOID SCREEN NEGATIVE (Neg); URINE COCAINE SCREEN NEGATIVE (Neg); URINE METHADONE SCREEN NEGATIVE (Neg); URINE OPIATE SCREEN NEGATIVE (Neg); URINE PHENCYCLIDINE SCREEN NEGATIVE (Neg)
[2019-09-14] MEDS ORDERED: heparin 25,000 UNIT/250ml bag 250 ML IV SCH (14:58)
[2019-09-14] MEDS ORDERED: heparin 10,000 units/1 ML INJ IV ONE ×2 (15:00→15:10)
[2019-09-14] MEDS ORDERED: heparin 10,000 units/1 ML INJ IV PRN (15:00)
[2019-09-14] MEDS ORDERED: aspirin 325mg tablet PO ONE (15:00)
[2019-09-14 15:20] LABS: ABG BASE EXCESS 1.3 mmol/L (-2.0-3.0); ABG HCO3 30.7 mmol/L (22.0-26.0); ABG OXYGEN SATURATION 89.9 % (95-98); ABG PCO2 (T) 72.7 mmHg (35.0-45.0); ABG PH (T) 7.243 (7.350-7.450); ABG PO2 (T) 62.4 mmHg (83-108); ALLEN'S TEST Positive; FCOHb 1.7 % (0.5-1.5); FLOW 4 L/min; FMetHb 0.4 % (0.3-1.12); TOTAL HEMOGLOBIN 13.8 G/dl (14.0-17.9)
[2019-09-14] MEDS ORDERED: HYDROcodone/acetaminophen 5mg/325mg tablet PO PRN (16:45)
[2019-09-14] MEDS ORDERED: HYDROcodone/acetaminophen 10/325mg tab PO PRN (16:45)
[2019-09-14] MEDS ORDERED: ondansetron/PF 4mg/2ml inj IV PRN (16:45)
[2019-09-14] MEDS ORDERED: HYDROmorphone inj. 0.5 MG/0.5 ML DISP.SYRIN IV PRN (16:45)
[2019-09-14] MEDS ORDERED: potassium CL 10mEq/100ml bag 100 ML IV PRN ×2 (16:45)
[2019-09-14] MEDS ORDERED: LORazepam 2 mg/ml vial IV PRN (16:45)
[2019-09-14] MEDS ORDERED: diphenhydrAMINE 50 mg/ml inj IV PRN (16:45)
[2019-09-14] MEDS ORDERED: methylPREDNISolone sod succ 125mg/2ml vial IV ONE (16:45)
[2019-09-14] MEDS ORDERED: acetaminophen 650mg rectal suppository RC PRN (16:45)
[2019-09-14] MEDS ORDERED: magnesium 2GM in 50ml NS 50 ML IV PRN (16:45)
[2019-09-14] MEDS ORDERED: diphenhydrAMINE 25mg capsule PO PRN (16:45)
[2019-09-14] MEDS ORDERED: potassium Cl 20 mEq SR tablet PO PRN ×2 (16:45)
[2019-09-14] MEDS ORDERED: magnesium 4gm in 100ml NS 100 ML IV PRN (16:45)
[2019-09-14] MEDS ORDERED: mag hydrox/Alum hydrox/simeth 30ml oral suspension PO PRN (16:45)
[2019-09-14] MEDS ORDERED: acetaminophen 325mg tablet PO PRN ×2 (16:45)
[2019-09-14] MEDS ORDERED: ipratropium/albuterol 3ml nebule NEB PRN (16:45)
[2019-09-14] MEDS ORDERED: metoclopramide 5 mg/ml inj IV PRN (16:45)
[2019-09-14] MEDS ORDERED: magnesium Cl slow-release 64mg tablet PO PRN (16:45)
[2019-09-14] MEDS ORDERED: magnesium hydroxide 30ml (MOM) UD suspension PO PRN (16:45)
[2019-09-14] MEDS ORDERED: bisacodyl 10mg suppository rectal RC PRN (16:45)
[2019-09-14] MEDS: azithromycin/NS 500mg/250ml 250 ML IV SCH (16:45)
[2019-09-14] MEDS: CefTRIAXone/D5W-Rocephin 1gm 50 ML IV SCH (17:10)
[2019-09-14] MEDS ORDERED: IPRA3AMP31 PO (17:10)
[2019-09-14] MEDS ORDERED: GUAI237S46 PO (17:11)
[2019-09-14] MEDS: normal saline 1000ml 1,000 ML IV SCH (17:14)
--- NOTE | 2019-09-14 17:25 | NUR ---
Received report from Dorothea NINO in ED. Awaiting patient's arrival to the unit.
[2019-09-14 17:51] LABS: ABG BASE EXCESS 2.9 mmol/L (-2.0-3.0); ABG HCO3 32.2 mmol/L (22.0-26.0); ABG OXYGEN SATURATION 96.2 % (95-98); ABG PCO2 (T) 72.2 mmHg (35.0-45.0); ABG PH (T) 7.267 (7.350-7.450); ABG PO2 (T) 85.8 mmHg (83-108); ALLEN'S TEST Positive; FCOHb 1.7 % (0.5-1.5); FMetHb 0.4 % (0.3-1.12); FO2Hb 94.2 % (94-100); MINUTE VOLUME 10 L/min; RESPIRATORY RATE 18 b/min; RESPIRATORY RATE (OBSERVED) 30 b/min; TOTAL HEMOGLOBIN 14.2 G/dl (14.0-17.9)
[2019-09-14 17:55] LABS: CLARITY,URINE CLEAR (Clear); COLOR,URINE STRAW (Yellow); GLUCOSE, URINE NEGATIVE (Neg); KETONES,URINE NEGATIVE (Neg); LEUKOCYTE ESTERASE ,URINE NEGATIVE (Neg); NITRITES, URINE NEGATIVE (Neg); OCCULT BLOOD,URINE NEGATIVE (Neg); PROTEIN,URINE 30 mg/dl (Neg); UROBILINOGEN,URINE 0.2 E.U/dL (0.2-1.0)
[2019-09-14 17:56] LABS: UA COLLECTION TYPE CLN CATCH MIDSTREAM
--- NOTE | 2019-09-14 18:01 | NUR ---
Patient arrived to the unit accompanied by ED personnel and family members. Placed on bedside monitor, belonging placed at bedside, vital signs obtained, 2 RN skin check complete, and patient oriented to room and call light.
[2019-09-14 18:03] LABS: BACTERIA,URINE NONE SEEN /HPF (Neg); HYALINE CASTS 0-3 /LPF (NEGATIVE); MUCUS STRANDS NONE SEEN /LPF (Neg); RBC,URINE NONE SEEN /HPF (0-2); SQUAMOUS EPITHELIAL CELL,UR NONE SEEN /LPF (FEW); WBC,URINE 0-4 /HPF (0-4)
[2019-09-14 18:30] VITALS: BP 163/89
--- NOTE | 2019-09-14 18:38 | NUR ---
Problems reprioritized. Patient report given, questions answered & plan of care reviewed with Sammie NINO.
--- NOTE | 2019-09-14 18:40 | NUR ---
Patient in room PCU 3014. I have received report from Reshma NINO and had the opportunity to ask questions and assume patient care.
[2019-09-14] MEDS: K and/or MAG REPLACEMENT MC SCH (19:24)
[2019-09-14] MEDS: ipratropium/albuterol 3ml nebule NEB SCH ×2 (19:27→21:00)
[2019-09-14 19:55] LABS: ABG BASE EXCESS 4.1 mmol/L (-2.0-3.0); ABG HCO3 34.2 mmol/L (22.0-26.0); ABG OXYGEN SATURATION 94.2 % (95-98); ABG PCO2 (T) 80.1 mmHg (35.0-45.0); ABG PH (T) 7.248 (7.350-7.450); ABG PO2 (T) 76.6 mmHg (83-108); FCOHb 1.1 % (0.5-1.5); FMetHb 0.2 % (0.3-1.12); TOTAL HEMOGLOBIN 14.3 G/dl (14.0-17.9)
[2019-09-14] MEDS: methylPREDNISolone sod succ 125mg/2ml vial IV SCH (20:44)
[2019-09-14] MEDS: docusate sod 100mg capsule PO SCH (20:44)
[2019-09-14 22:00] VITALS: BP 120/86
[2019-09-15] VITALS (11 sets, daily range): BP systolic 116–137; BP diastolic 55–81
[2019-09-15] MEDS: normal saline 1000ml 1,000 ML IV SCH ×3 (02:24→14:27)
[2019-09-15] MEDS: methylPREDNISolone sod succ 125mg/2ml vial IV SCH ×4 (03:02→19:23)
--- NOTE | 2019-09-15 03:25 | NUR ---
Patient has had a decrease in LOC. Notified MD. ordered ABG and to get RT to possibly eval need for Bipap.
[2019-09-15 03:35] LABS: ABG BASE EXCESS 3.5 mmol/L (-2.0-3.0); ABG HCO3 35.7 mmol/L (22.0-26.0); ABG OXYGEN SATURATION 98.7 % (95-98); ABG PCO2 (T) 99.1 mmHg (35.0-45.0); ABG PH (T) 7.173 (7.350-7.450); ABG PO2 (T) 145.5 mmHg (83-108); ALLEN'S TEST Positive; FCOHb 1.3 % (0.5-1.5); FMetHb 0.4 % (0.3-1.12); PATIENT TEMPERATURE 36.8; TOTAL HEMOGLOBIN 14.4 G/dl (14.0-17.9)
[2019-09-15 03:59] LABS: BASOPHILS % (AUTO) 0.5 % (0-1); EOSINOPHILS % (AUTO) 0 % (0-6); LYMPHOCYTES # (AUTO) 0.5 X10'3 (1.1-4.8); NEUTROPHILS # (AUTO) 3.8 X10'3 (1.8-7.7); WHITE BLOOD COUNT 4.4 X10'3 (4.5-11.0)
[2019-09-15 04:01] LABS: LYMPHOCYTES % (AUTO) 11.2 % (21-51); MEAN CORPUSCULAR HEMOGLOBIN 18.4 PG (27.0-31.0); MEAN CORPUSCULAR HGB CONC 28.3 g/dL (33.0-36.5); MEAN PLATELET VOLUME 8.8 FL (7.4-10.4); MONOCYTES % (AUTO) 0.6 % (2-12); NEUTROPHILS % (AUTO) 87.7 % (42-75); PLATELET COUNT 144 X10'3 (140-440); RED BLOOD COUNT 7.07 X10'6 (4.70-6.10); RED CELL DISTRIBUTION WIDTH 17.6 % (11.5-14.5)
[2019-09-15 04:05] LABS: ALANINE AMINOTRANSFERASE 13 U/L (12-78); ALBUMIN 3.5 G/DL (3.4-5.0); ALKALINE PHOSPHATASE 84 IU/L (46-116); ANION GAP -2 (8-16); ASPARTATE AMINO TRANSFERASE 13 U/L (10-37); BILIRUBIN,TOTAL 0.8 MG/DL (0.1-1.0); BLOOD UREA NITROGEN 26 MG/DL (7-18); BUN/CREATININE RATIO 23.2 (5.4-32.0); CALCIUM 8.4 MG/DL (8.5-10.1); CHLORIDE 108 MMOL/L (99-107); CREATININE 1.12 MG/DL (0.60-1.10); GLUCOSE 182 MG/DL (70-104); MAGNESIUM 1.9 MG/DL (1.5-2.4); PHOSPHORUS 2.6 MG/DL (2.3-4.5); POTASSIUM 5.7 MMOL/L (3.5-5.1); SODIUM 142 MMOL/L (135-145); TOTAL CARBON DIOXIDE 36.4 MMOL/L (24-32); eGFR 62 ML/MIN
--- NOTE | 2019-09-15 06:35 | NUR ---
Problems reprioritized. Patient report given, questions answered & plan of care reviewed with Chely NINO.
[2019-09-15] MEDS: ipratropium/albuterol 3ml nebule NEB SCH ×4 (07:16→19:32)
--- NOTE | 2019-09-15 07:25 | NUR ---
Patient in room PCU 3014. I have received report from Sammie and had the opportunity to ask questions and assume patient care.
[2019-09-15] MEDS: K and/or MAG REPLACEMENT MC SCH ×2 (08:00→19:32)
[2019-09-15] MEDS: CefTRIAXone/D5W-Rocephin 1gm 50 ML IV SCH (09:15)
[2019-09-15] MEDS: docusate sod 100mg capsule PO SCH ×2 (09:15→19:25)
[2019-09-15] MEDS: enoxaparin 40mg/0.4ml syringe SUBCUT SCH (09:16)
--- NOTE | 2019-09-15 09:37 | NUR ---
PAGER ID: [phone] MESSAGE: [phone] Young Valenzuela - Patient is running heparin 900 units/hr for one positive trop of 0.23. Patient also receiving routine lovenox. Do you want to repeat trops or DC heparin? Chely NINO [id number]
--- NOTE | 2019-09-15 10:14 | NUR ---
New orders to DC heparin per Dr. Coyle.
[2019-09-15] MEDS: azithromycin/NS 500mg/250ml 250 ML IV SCH (11:07)
[2019-09-15 12:00] LABS: ABG BASE EXCESS 2.2 mmol/L (-2.0-3.0); ABG HCO3 31.6 mmol/L (22.0-26.0); ABG OXYGEN SATURATION 92.7 % (95-98); ABG PCO2 (T) 73.2 mmHg (35.0-45.0); ABG PH (T) 7.253 (7.350-7.450); ABG PO2 (T) 70.1 mmHg (83-108); ALLEN'S TEST Positive; FCOHb 0.6 % (0.5-1.5); FMetHb 0.3 % (0.3-1.12); FO2Hb 91.9 % (94-100); MINUTE VOLUME 8 L/min; RESPIRATORY RATE 24 b/min; RESPIRATORY RATE (OBSERVED) 28 b/min; TIDAL VOLUME 365 mL; TOTAL HEMOGLOBIN 13.8 G/dl (14.0-17.9)
--- NOTE | 2019-09-15 12:01 | NUR ---
MD at bedside, notified about elevated potassium of 5.7, no new orders. New orders implemented to start ASA 81 mg po QD starting today and obtain a lipid panel. Repeat ABG's are pending.
[2019-09-15] MEDS: aspirin 81mg tab.chew PO SCH (15:43)
[2019-09-15] MEDS ORDERED: sodium polystyrene sulfonate 15gm/60ml oral suspension PO ONE (17:10)
--- NOTE | 2019-09-15 18:09 | NUR ---
Problems reprioritized. Patient report given, questions answered & plan of care reviewed with Sammie.
--- NOTE | 2019-09-15 19:00 | NUR ---
Patient in room PCU 3014. I have received report from Chely NINO and had the opportunity to ask questions and assume patient care.
[2019-09-16] VITALS (13 sets, daily range): BP systolic 129–156; BP diastolic 68–80
[2019-09-16] MEDS: methylPREDNISolone sod succ 125mg/2ml vial IV SCH ×4 (02:32→19:43)
[2019-09-16 05:39] LABS: EOSINOPHILS % (AUTO) 0 % (0-6); HEMOGLOBIN 12.2 g/dl (14.0-17.9); LYMPHOCYTES # (AUTO) 0.4 X10'3 (1.1-4.8); MEAN PLATELET VOLUME 9.6 FL (7.4-10.4)
[2019-09-16 05:41] LABS: BASOPHILS % (AUTO) 0.5 % (0-1); HEMATOCRIT 42.6 % (42.0-52.0); LYMPHOCYTES % (AUTO) 4.7 % (21-51); MEAN CORPUSCULAR HEMOGLOBIN 18.2 PG (27.0-31.0); MEAN CORPUSCULAR HGB CONC 28.7 g/dL (33.0-36.5); MEAN CORPUSCULAR VOLUME 63.4 FL (78-98); MONOCYTES # (AUTO) 0.3 X10'3 (0-0.9); MONOCYTES % (AUTO) 3.8 % (2-12); PLATELET COUNT 173 X10'3 (140-440); RED BLOOD COUNT 6.71 X10'6 (4.70-6.10); RED CELL DISTRIBUTION WIDTH 17.6 % (11.5-14.5); WHITE BLOOD COUNT 7.7 X10'3 (4.5-11.0)
[2019-09-16 05:47] LABS: ALANINE AMINOTRANSFERASE 14 U/L (12-78); ALBUMIN 3.2 G/DL (3.4-5.0); ALBUMIN/GLOBULIN RATIO 1.1 (1.1-1.5); ALKALINE PHOSPHATASE 65 IU/L (46-116); ANION GAP 0 (8-16); ASPARTATE AMINO TRANSFERASE 12 U/L (10-37); BILIRUBIN,TOTAL 0.7 MG/DL (0.1-1.0); BLOOD UREA NITROGEN 28 MG/DL (7-18); CALCIUM 8.4 MG/DL (8.5-10.1); CHLORIDE 112 MMOL/L (99-107); CHOL/HDL RATIO 3.6 (0.00-4.99); CHOLESTEROL 97 MG/DL (0-200); GLUCOSE 144 MG/DL (70-104); HDL CHOLESTEROL 27 MG/DL (35-60); LDL CHOLESTEROL 66 MG/DL (50-100); MAGNESIUM 1.9 MG/DL (1.5-2.4); PHOSPHORUS 2.7 MG/DL (2.3-4.5); POTASSIUM 4.1 MMOL/L (3.5-5.1); SODIUM 148 MMOL/L (135-145); TOTAL CARBON DIOXIDE 35.7 MMOL/L (24-32); TOTAL PROTEIN 6.2 G/DL (6.4-8.2); TRIGLYCERIDES 67 MG/DL (20-135); eGFR 71 ML/MIN
--- NOTE | 2019-09-16 06:26 | NUR ---
Patient in room PCU 3014. I have received report from Sammie and had the opportunity to ask questions and assume patient care.
--- NOTE | 2019-09-16 06:27 | NUR ---
Problems reprioritized. Patient report given, questions answered & plan of care reviewed with Chely NINO.
[2019-09-16 06:55] LABS: PLATELET ESTIMATE NORMAL
[2019-09-16 06:56] LABS: ANISOCYTOSIS 1+; MICROCYTOSIS 2+
[2019-09-16 06:57] LABS: LARGE PLATELETS FEW
[2019-09-16] MEDS: ipratropium/albuterol 3ml nebule NEB SCH ×4 (07:14→19:27)
[2019-09-16] MEDS: CefTRIAXone/D5W-Rocephin 1gm 50 ML IV SCH (07:32)
[2019-09-16] MEDS: enoxaparin 40mg/0.4ml syringe SUBCUT SCH (07:33)
[2019-09-16] MEDS: docusate sod 100mg capsule PO SCH ×2 (08:00→19:50)
[2019-09-16] MEDS: K and/or MAG REPLACEMENT MC SCH ×2 (08:00→19:49)
[2019-09-16] MEDS: azithromycin/NS 500mg/250ml 250 ML IV SCH (09:16)
--- NOTE | 2019-09-16 11:32 | NUR ---
Page sent to Dr. Durand PAGER ID: [phone] MESSAGE: [phone] Young Diaz Patient is requesting to remove bipap more frequently r/t coughing up sputum. Do you want to repeat another ABG? Chely NINO, [id number]
[2019-09-16 12:26] LABS: ABG BASE EXCESS 5.4 mmol/L (-2.0-3.0); ABG HCO3 32.9 mmol/L (22.0-26.0); ABG OXYGEN SATURATION 89.7 % (95-98); ABG PCO2 (T) 61.3 mmHg (35.0-45.0); ABG PH (T) 7.347 (7.350-7.450); ABG PO2 (T) 58.1 mmHg (83-108); ALLEN'S TEST Positive; FCOHb 0.7 % (0.5-1.5); FLOW 4 L/min; FMetHb 0.3 % (0.3-1.12); FO2Hb 88.8 % (94-100); RESPIRATORY RATE (OBSERVED) 20 b/min; TOTAL HEMOGLOBIN 13.2 G/dl (14.0-17.9)
--- NOTE | 2019-09-16 14:29 | NUR ---
MD reviewed new ABG's. Patient has been resting on 5/L via NC during meal times and therapy. Patient was seated in chair and he is now resting comfortably and sating at 94%. IVF stopped per MD orders. Patient is now ready to be placed back on the bipap. Will continue to monitor.
[2019-09-16] MEDS: aspirin 81mg tab.chew PO SCH (15:48)
[2019-09-16] MEDS: buprenorphine/naloxone 8mg/2mg SL tablet SL SCH (17:08)
--- NOTE | 2019-09-16 18:09 | NUR ---
Patient in room PCU 3014. I have received report from Chely NINO and had the opportunity to ask questions and assume patient care.
--- NOTE | 2019-09-16 18:24 | NUR ---
Problems reprioritized. Patient report given, questions answered & plan of care reviewed with Sammie.
[2019-09-16] MEDS: lactobacillus rhamnosus 10,000 MMU CELLS/CAPSULE PO SCH (19:43)
[2019-09-16] MEDS ORDERED: ACIDOPHILUS PO SCH (20:00)
[2019-09-16] MEDS ORDERED: BULGARICUS PO SCH (20:00)
[2019-09-17] VITALS (8 sets, daily range): BP systolic 128–153; BP diastolic 62–99
[2019-09-17] MEDS: methylPREDNISolone sod succ 125mg/2ml vial IV SCH ×4 (01:12→20:28)
[2019-09-17 04:56] LABS: BASOPHILS % (AUTO) 0 % (0-1); MEAN PLATELET VOLUME 9.3 FL (7.4-10.4); MONOCYTES # (AUTO) 0.2 X10'3 (0-0.9)
[2019-09-17 04:59] LABS: EOSINOPHILS % (AUTO) 0.1 % (0-6); HEMATOCRIT 41.9 % (42.0-52.0); HEMOGLOBIN 12.3 g/dl (14.0-17.9); LYMPHOCYTES # (AUTO) 0.5 X10'3 (1.1-4.8); LYMPHOCYTES % (AUTO) 6.1 % (21-51); MEAN CORPUSCULAR HEMOGLOBIN 18.3 PG (27.0-31.0); MEAN CORPUSCULAR HGB CONC 29.2 g/dL (33.0-36.5); MEAN CORPUSCULAR VOLUME 62.8 FL (78-98); MONOCYTES % (AUTO) 2.5 % (2-12); NEUTROPHILS # (AUTO) 7.3 X10'3 (1.8-7.7); NEUTROPHILS % (AUTO) 91.3 % (42-75); PLATELET COUNT 173 X10'3 (140-440); RED BLOOD COUNT 6.68 X10'6 (4.70-6.10); RED CELL DISTRIBUTION WIDTH 17.2 % (11.5-14.5)
[2019-09-17 05:05] LABS: ALANINE AMINOTRANSFERASE 12 U/L (12-78); ALBUMIN 3.1 G/DL (3.4-5.0); ALBUMIN/GLOBULIN RATIO 1.1 (1.1-1.5); ALKALINE PHOSPHATASE 61 IU/L (46-116); ANION GAP 0 (8-16); ASPARTATE AMINO TRANSFERASE 11 U/L (10-37); BILIRUBIN,TOTAL 0.8 MG/DL (0.1-1.0); BLOOD UREA NITROGEN 28 MG/DL (7-18); BUN/CREATININE RATIO 26.9 (5.4-32.0); CALCIUM 8.5 MG/DL (8.5-10.1); CHLORIDE 111 MMOL/L (99-107); CREATININE 1.04 MG/DL (0.60-1.10); GLUCOSE 136 MG/DL (70-104); PHOSPHORUS 2.5 MG/DL (2.3-4.5); POTASSIUM 3.9 MMOL/L (3.5-5.1); SODIUM 146 MMOL/L (135-145); TOTAL CARBON DIOXIDE 34.6 MMOL/L (24-32); eGFR 68 ML/MIN
--- NOTE | 2019-09-17 06:05 | NUR ---
Problems reprioritized. Patient report given, questions answered & plan of care reviewed with Shwetha NINO.
[2019-09-17 06:26] LABS: PLATELET ESTIMATE NORMAL
[2019-09-17 06:27] LABS: LARGE PLATELETS FEW; ROULEAUX 1+
--- NOTE | 2019-09-17 06:27 | NUR ---
Patient in room PCU 3014B. I have received report from Sammie NINO and had the opportunity to ask questions and assume patient care.
[2019-09-17 06:28] LABS: ANISOCYTOSIS 1+; HYPOCHROMASIA 2+; MICROCYTOSIS 2+
[2019-09-17 06:29] LABS: ELLIPTOCYTES FEW
[2019-09-17 07:21] LABS: ABG BASE EXCESS 4.8 mmol/L (-2.0-3.0); ABG HCO3 33.1 mmol/L (22.0-26.0); ABG OXYGEN SATURATION 95.5 % (95-98); ABG PCO2 (T) 66.6 mmHg (35.0-45.0); ABG PH (T) 7.314 (7.350-7.450); ABG PO2 (T) 84.3 mmHg (83-108); ALLEN'S TEST Positive; FCOHb 0.8 % (0.5-1.5); FLOW 6 L/min; FMetHb 0.5 % (0.3-1.12); FO2Hb 94.3 % (94-100); TOTAL HEMOGLOBIN 13.9 G/dl (14.0-17.9)
[2019-09-17] MEDS: ipratropium/albuterol 3ml nebule NEB SCH ×5 (07:22→23:27)
[2019-09-17] MEDS: allopurinol 100mg tablet PO SCH (07:45)
[2019-09-17] MEDS: guaiFENesin/DM 10ml UD oral syrup PO SCH ×3 (07:45→15:21)
[2019-09-17] MEDS: lactobacillus rhamnosus 10,000 MMU CELLS/CAPSULE PO SCH ×2 (07:45→20:29)
[2019-09-17] MEDS: CefTRIAXone/D5W-Rocephin 1gm 50 ML IV SCH (07:45)
[2019-09-17] MEDS: docusate sod 100mg capsule PO SCH ×2 (07:46→20:29)
[2019-09-17] MEDS: azithromycin 250mg tablet PO SCH (07:46)
[2019-09-17] MEDS: enoxaparin 40mg/0.4ml syringe SUBCUT SCH (07:46)
[2019-09-17] MEDS: K and/or MAG REPLACEMENT MC SCH ×2 (08:00→20:00)
[2019-09-17] MEDS: buprenorphine/naloxone 8mg/2mg SL tablet SL SCH (08:57)
[2019-09-17] MEDS: aspirin 81mg tab.chew PO SCH (15:21)
[2019-09-17] MEDS ORDERED: hydrALAZINE 20mg/ml inj. IV PRN (17:40)
--- NOTE | 2019-09-17 18:36 | NUR ---
Problems reprioritized. Patient report given, questions answered & plan of care reviewed with Raina NINO. Family at bedside and patient stable
--- NOTE | 2019-09-17 18:36 | NUR ---
Patient in room PCU 3014B. I have received report from MICA Tadeo and had the opportunity to ask questions and assume patient care. Patient awake for bedside report with family at bedside. On 4L NC while eating and stable at this time. Will continue to monitor closely.
[2019-09-18] MEDS: guaiFENesin/DM 10ml UD oral syrup PO SCH ×2 (00:37→07:54)
[2019-09-18] MEDS: methylPREDNISolone sod succ 125mg/2ml vial IV SCH ×2 (00:38→07:54)
[2019-09-18 03:00] VITALS: BP 144/77
[2019-09-18 05:17] LABS: BASOPHILS % (AUTO) 0 % (0-1); HEMOGLOBIN 12.1 g/dl (14.0-17.9); LYMPHOCYTES # (AUTO) 0.3 X10'3 (1.1-4.8); MEAN CORPUSCULAR HGB CONC 29.1 g/dL (33.0-36.5); MONOCYTES # (AUTO) 0.1 X10'3 (0-0.9)
[2019-09-18 05:19] LABS: EOSINOPHILS % (AUTO) 0 % (0-6); HEMATOCRIT 41.7 % (42.0-52.0); LYMPHOCYTES % (AUTO) 4.1 % (21-51); MEAN CORPUSCULAR HEMOGLOBIN 18.3 PG (27.0-31.0); MEAN CORPUSCULAR VOLUME 62.8 FL (78-98); MEAN PLATELET VOLUME 9.4 FL (7.4-10.4); MONOCYTES % (AUTO) 2.2 % (2-12); NEUTROPHILS # (AUTO) 5.9 X10'3 (1.8-7.7); NEUTROPHILS % (AUTO) 93.7 % (42-75); PLATELET COUNT 170 X10'3 (140-440); RED BLOOD COUNT 6.63 X10'6 (4.70-6.10); RED CELL DISTRIBUTION WIDTH 17.6 % (11.5-14.5); WHITE BLOOD COUNT 6.3 X10'3 (4.5-11.0)
[2019-09-18 05:31] LABS: ALANINE AMINOTRANSFERASE 15 U/L (12-78); ALBUMIN 2.9 G/DL (3.4-5.0); ALKALINE PHOSPHATASE 55 IU/L (46-116); ANION GAP 4 (8-16); ASPARTATE AMINO TRANSFERASE 11 U/L (10-37); BLOOD UREA NITROGEN 30 MG/DL (7-18); BUN/CREATININE RATIO 31.9 (5.4-32.0); CALCIUM 8.4 MG/DL (8.5-10.1); CHLORIDE 110 MMOL/L (99-107); CREATININE 0.94 MG/DL (0.60-1.10); GLUCOSE 128 MG/DL (70-104); MAGNESIUM 2.1 MG/DL (1.5-2.4); PHOSPHORUS 3.3 MG/DL (2.3-4.5); POTASSIUM 4.1 MMOL/L (3.5-5.1); SODIUM 148 MMOL/L (135-145); TOTAL CARBON DIOXIDE 33.8 MMOL/L (24-32); TOTAL PROTEIN 5.9 G/DL (6.4-8.2); eGFR 76 ML/MIN
[2019-09-18 06:00] VITALS: BP 147/81
--- NOTE | 2019-09-18 06:25 | NUR ---
Patient in room PCU 3014. I have received report from MICA Chaidez and had the opportunity to ask questions and assume patient care.
--- NOTE | 2019-09-18 06:25 | NUR ---
Problems reprioritized. Patient report given, questions answered & plan of care reviewed with MICA ROBERSON.
[2019-09-18 06:48] LABS: HYPOCHROMASIA 2+; PLATELET ESTIMATE NORMAL
[2019-09-18 06:50] LABS: POLYCHROMASIA FEW; SCHISTOCYTES FEW
[2019-09-18 06:52] LABS: ELLIPTOCYTES 1+; TEAR DROP CELLS FEW
[2019-09-18] MEDS: lactobacillus rhamnosus 10,000 MMU CELLS/CAPSULE PO SCH (07:54)
[2019-09-18] MEDS: allopurinol 100mg tablet PO SCH (07:54)
[2019-09-18] MEDS: azithromycin 250mg tablet PO SCH (07:54)
[2019-09-18] MEDS: CefTRIAXone/D5W-Rocephin 1gm 50 ML IV SCH (07:54)
[2019-09-18] MEDS: docusate sod 100mg capsule PO SCH (07:55)
[2019-09-18] MEDS: enoxaparin 40mg/0.4ml syringe SUBCUT SCH (07:55)
[2019-09-18] MEDS: K and/or MAG REPLACEMENT MC SCH (08:00)
[2019-09-18 09:10] LABS: ABG BASE EXCESS 5.2 mmol/L (-2.0-3.0); ABG HCO3 31.9 mmol/L (22.0-26.0); ABG OXYGEN SATURATION 95.2 % (95-98); ABG PH (T) 7.374 (7.350-7.450); ABG PO2 (T) 76.2 mmHg (83-108); ALLEN'S TEST Positive; FCOHb 0.6 % (0.5-1.5); FLOW 6 L/min; FMetHb 0.3 % (0.3-1.12); FO2Hb 94.3 % (94-100)
[2019-09-18] MEDS: buprenorphine/naloxone 8mg/2mg SL tablet SL SCH (09:19)
[2019-09-18] MEDS: ipratropium/albuterol 3ml nebule NEB SCH ×2 (10:14→14:29)
[2019-09-18 11:00] VITALS: BP 141/83
[2019-09-18] MEDS ORDERED: PRED20TA PO (14:46)
[2019-09-18] MEDS ORDERED: ASPI-1265 PO (14:46)
--- NOTE | 2019-09-18 15:08 | NUR ---
Initial: Pt admit w/ COPD exacerbation and metabolic encephalopathy. PO 75% avg heart healthy meals w/ occasional fluctuation decent PO given age meeting needs. LBM 09/16 receiving colace. MCV 62.8; RD d/w RN regarding iron panel per MD approval. Will continue to monitor. Rec: 1. continue heart healthy diet 2. bowel care as needed 3. wt per rx Addendum: 09/18/19 at [address] Amended: Links added.
--- NOTE | 2019-09-18 16:40 | NUR ---
Pt discharged to home with family. He was taken to curb where son picked him up. He had all belongings and discharge instructions with him. The [employer] machine was sent home with instructions and contact number provided by the rep.
== END 2019-09-18 16:04 | disposition home health service (06) | DRG 189 ==
LOC: ER 12:11 → ED HOLD 17:41 → PCU 3S 18:15
PROVIDERS: ADMIT Family Medicine; ATTEND Family Medicine
PROC: 5A09357 Assistance with Respiratory Ventilation, Less than 24 Consecutive Hours, Continuous Positive Airway Pressure (ICD-10-PCS; principal; 2019-09-14)
PROC: 5A09457 Assistance with Respiratory Ventilation, 24-96 Consecutive Hours, Continuous Positive Airway Pressure (ICD-10-PCS; 2019-09-15)
DX: J96.22 Acute and chronic respiratory failure with hypercapnia (principal); G93.41 Metabolic encephalopathy; I21.4 Non-ST elevation (NSTEMI) myocardial infarction; N17.0 Acute kidney failure with tubular necrosis; J44.1 Chronic obstructive pulmonary disease with (acute) exacerbation; E87.0 Hyperosmolality and hypernatremia; J96.21 Acute and chronic respiratory failure with hypoxia; Z66 Do not resuscitate; E87.5 Hyperkalemia; G89.29 Other chronic pain; M10.9 Gout, unspecified; Z79.82 Long term (current) use of aspirin; Z87.891 Personal history of nicotine dependence; Z99.81 Dependence on supplemental oxygen; Z90.49 Acquired absence of other specified parts of digestive tract; Z79.899 Other long term (current) drug therapy
CPT/HCPCS: 36415; 36600; 70450; 71046; 80053; 80061; 80305; 80320; 81001; 82803; 83605; 83735; 83880; 84100; 84484; 85018; 85025; 85610; 85730; 87040; 87081; 94640; 94660; 94760; 96374; 96375; 97112; 97116; 97161; 97530; 99285; G0378; J0456; J0696; J1170; J1644; J1650; J2060; J2405; J2930; J7030

== ENCOUNTER 2019-10-07 19:06 | Emergency (ER) | payer MEDICARE, MEDICAID ==
[~2019-10-07] VITALS: Ht 165.1 cm; Wt 63.0 kg
[~2019-10-07 19:06] MED LIST changes: +ASPI-1265 PO; +GUAI237S46 PO; +IPRA3AMP31 PO; -IPRA3AMP9 IH; +PRED20TA PO; -ROBDML PO
[2019-10-07 19:11] VITALS: BP 126/90
[2019-10-07] MEDS ORDERED: GABA300C PO (19:48)
[2019-10-07] MEDS ORDERED: ACYC5CRE2 TOP (19:48)
[2019-10-07] MEDS ORDERED: ACYC-202 PO (19:48)
== END 2019-10-07 20:07 | disposition home or self-care (01) ==
LOC: ER 19:07
DX: B02.9 Zoster without complications (principal); J44.9 Chronic obstructive pulmonary disease, unspecified; M10.9 Gout, unspecified; Z90.49 Acquired absence of other specified parts of digestive tract; Z79.82 Long term (current) use of aspirin; Z79.899 Other long term (current) drug therapy
CPT/HCPCS: 99283